=== PATIENT | male | born 1940 | race American Indian/Alaskan Native ===

== ENCOUNTER 2017-11-09 11:04 | Emergency (ER) | payer MEDICARE ==
[2017-11-09 11:09] VITALS: TEMP 97.7
[2017-11-09 13:38] LABS: RBC URINE 1 /hpf (0-3); URINE BILIRUBIN NEGATIVE (NEGATIVE); URINE BLOOD NEGATIVE (NEGATIVE); URINE COLOR Yellow (YELLOW); URINE GLUCOSE (UA) NORMAL (Normal); URINE KETONE NEGATIVE (NEGATIVE); URINE LEUKOCYTE ESTERASE NEG Leu/uL (Negative); URINE PROTEIN NEGATIVE (NEGATIVE); URINE UROBILINOGEN NORMAL mg/dL (0.2-1.0); WBC URINE 1 /hpf (0-5)
[2017-11-09 14:22] VITALS: BP 145/86; PULSE 102; RESP 20; O2SAT 96
--- NOTE | 2017-11-09 18:46 | C.PDOC ---
History Of Present Illness 77 y/o male presents to the ED for evaluation dysuria and urinary frequency which began 2 weeks ago. Patient denies fever, chills, chest pain, nausea, vomiting, penile discharge. Chief Complaint (Nursing): Male Genitourinary History Per: Patient History/Exam Limitations: no limitations Onset/Duration Of Symptoms: Days Current Symptoms Are (Timing): Still Present Associated Symptoms: Urinary Symptoms. denies: Fever, Chills, Nausea, Vomiting , Chest Pain Additional History Per: Patient Past Medical History Reviewed: Historical Data, Nursing Documentation, Vital Signs Vital Signs: Last Vital Signs Temp 97.7 F 11/09/17 11:08 Pulse 102 H 11/09/17 14:21 Resp 20 11/09/17 14:21 BP 145/86 11/09/17 14:21 Pulse Ox 96 11/09/17 18:45 - Medical History PMH: HTN Surgical History: No Surg Hx Family History: States: Unknown Family Hx - Social History Hx Alcohol Use: No Hx Substance Use: No - Immunization History Hx Tetanus Toxoid Vaccination: No Hx Influenza Vaccination: Yes Hx Pneumococcal Vaccination: No Review Of Systems Constitutional: Negative for: Fever, Chills Cardiovascular: Negative for: Chest Pain Gastrointestinal: Negative for: Nausea, Vomiting Genitourinary: Positive for: Dysuria, Frequency Physical Exam - Physical Exam Appears: Non-toxic, No Acute Distress Skin: Normal Color, Warm, Dry Oral Mucosa: Moist Neck: Supple Chest: Symmetrical, No Deformity Cardiovascular: Rhythm Regular Respiratory: Normal Breath Sounds Gastrointestinal/Abdominal: Soft, No Tenderness, No Guarding, No Rebound Neurological/Psych: Oriented x3, Normal Speech, Normal Cognition Gait: Steady ED Course And Treatment O2 Sat by Pulse Oximetry: 96 (on RA) Pulse Ox Interpretation: Normal Medical Decision Making Medical Decision Making: urine culture obtained. UA ordered and reviewed. Disposition - Disposition Referrals: Janel Juarez MD [Staff Provider] - Disposition: HOME/ ROUTINE Disposition Time: 13:00 Condition: GOOD Additional Instructions: Thank you for letting us take care of you today. The emergency medical care you received today was directed at your acute symptoms. If you were prescribed any medication, please fill it and take as directed. It may take several days for your symptoms to resolve. Return to the Emergency Department if your symptoms worsen, do not improve, or if you have any other problems. Please contact your doctor or call one of the physicians/clinics you have been referred to that are listed on the Patient Visit Information form that is included in your discharge packet. Bring any paperwork you were given at discharge with you along with any medications you are taking to your follow up visit. Our treatment cannot replace ongoing medical care by a primary care provider (PCP) outside of the emergency department. Thank you for allowing the [facility] team to be part of your care today. Follow up with your doctor in 3-4 days for re-evaluation and further management. Forms: [employer] (Gambian) - Clinical Impression Clinical Impression: Normal exam - Scribe Statement The provider has reviewed the documentation as recorded by the Scribe (SP) Provider Attestation: All medical record entries made by the Scribe were at my direction and personally dictated by me. I have reviewed the chart and agree that the record accurately reflects my personal performance of the history, physical exam, medical decision making, and the department course for this patient. I have also personally directed, reviewed, and agree with the discharge instructions and disposition.
== END 2017-11-09 14:22 | disposition home or self-care (01) ==
LOC: C.ER 11:04
DX: Z04.8 Encounter for examination and observation for other specified reasons (principal)

== ENCOUNTER 2018-05-15 13:42 | Inpatient (IN) | payer MEDICARE ==
[2018-05-15 13:53] VITALS: BMI 43.5
--- NOTE | 2018-05-15 14:16 | C.PDOC ---
History Of Present Illness 78 year old male presents to ED for near syncope prior to arrival, onset while standing. +fall, +left facial injury. Denies LOC. Denies associated chest pain, palpitations, headache, abdominal pain, nausea, vomiting. Pt is currently asymptomatic. Denies history of CAD. Pt states "I used to have slight HIV but I got rid of it". Pt is noncompliant with HAART for the past year. Denies drug or smoking use. 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 ONSET WHILE STANDING, +FALL +L FACIAL INJURY. NO LOC. DENIES ASSOC CP, PALP, CAMPBELL, ABD PAIN, NV. CURRENTLY ASYMPT. DENIES HO CAD. PS "I USED TO HAVE SLIGHT HIV BUT I GOT RID OF IT". NONCOMPLIANT W HAART X 1 YR. DENIES DRUG, SMOKING USE EXAM NAD NONTOXIC HEENT +ABRASION L FACE NO SWELL, DEFORM; EOMI; NOSE CLEAR NECK SUPPLE LUNGS CTA B/L NO W/R/R NEURO NO FOCAL DEF NO EDEMA REMAINDER NEG Time Seen by Provider: 05/15/18 13:49 History Per: Patient History/Exam Limitations: no limitations Onset/Duration Of Symptoms: Days Current Symptoms Are (Timing): Still Present Additional History Per: Patient Past Medical History Reviewed: Historical Data, Nursing Documentation, Vital Signs Vital Signs: Last Vital Signs Temp 98.3 F 05/15/18 13:52 Pulse 77 05/15/18 15:27 Resp 16 05/15/18 15:27 BP 110/86 05/15/18 15:27 Pulse Ox 96 05/15/18 14:32 - Medical History PMH: HTN Family History: States: Unknown Family Hx - Social History Hx Alcohol Use: No Hx Substance Use: No - Immunization History Hx Tetanus Toxoid Vaccination: No Hx Influenza Vaccination: No Hx Pneumococcal Vaccination: No Review Of Systems Except As Marked, All Systems Reviewed And Found Negative. Constitutional: Negative for: Fever, Chills Cardiovascular: Negative for: Chest Pain, Palpitations Respiratory: Negative for: Cough, Shortness of Breath Gastrointestinal: Negative for: Nausea, Vomiting, Abdominal Pain Skin: Positive for: Other (left facial injury) Neurological: Positive for: Other (Near syncope). Negative for: Headache Physical Exam - Physical Exam Appears: Non-toxic, No Acute Distress Skin: Warm, Dry, Other (abrasion to left side of face, no swelling or deformity) Head: Atraumatic, Normacephalic Eye(s): bilateral: Normal Inspection, EOMI Nose: Normal Oral Mucosa: Moist Throat: Normal, No Erythema, No Exudate Neck: Normal ROM, Supple Cardiovascular: Rhythm Regular, No Murmur Respiratory: Normal Breath Sounds, No Rales, No Rhonchi, No Wheezing Gastrointestinal/Abdominal: Soft, No Tenderness Extremity: Normal ROM, No Pedal Edema Neurological/Psych: Oriented x3, Normal Speech, Other (no focal deficits) ED Course And Treatment - Laboratory Results Result Diagrams: 05/15/18 14:22 05/15/18 14:22 ECG: Interpreted By Me ECG Rhythm: Sinus Rhythm ECG Interpretation: Normal Rate From EC O2 Sat by Pulse Oximetry: 96 (RA) Pulse Ox Interpretation: Normal Progress - Re-Evaluation Re-evaluation Note: 05/15/18 16:43 EXAM UNCH PRIOR VSS D/W DR THOMSON 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 WILL 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 - Data Reviewed Data Reviewed: Lab, Diagnostic imaging, EKG, Old records Medical Decision Making Medical Decision Making: Plan: Blood work Urinalysis EKG CXR Disposition Counseled Patient/Family Regarding: Studies Performed, Diagnosis - Disposition Disposition: HOSPITALIZED Disposition Time: 16:44 Condition: STABLE - POA Present On Arrival: Falls Or Trauma - Clinical Impression Clinical Impression: Near syncope, Facial contusion - Scribe Statement The provider has reviewed the documentation as recorded by the Scribkathe Carlton All medical record entries made by the Scribe were at my direction and personally dictated by me. I have reviewed the chart and agree that the record accurately reflects my personal performance of the history, physical exam, medical decision making, and the department course for this patient. I have also personally directed, reviewed, and agree with the discharge instructions and disposition. Decision To Admit - Pt Status Changed To: Hospital Disposition Of: Observation - . Bed Request Type: Telemetry Admitting Physician: Alia Thomson Patient Diagnosis: Near syncope, Facial contusion
[2018-05-15 14:26] LABS: BASO # 0.1 K/uL (0.0-0.2); BASO % 1.2 % (0.0-2.0); EOS # 0.1 K/uL (0.0-0.7); HEMOGLOBIN 14.6 g/dL (12.0-18.0); LYMPH # 2.2 K/uL (1.0-4.3); LYMPH % 39.6 % (20.0-40.0); MEAN CELL VOLUME 82.1 fL (80.0-94.0); MEAN CORPUSCULAR HEMOGLOBIN 27.6 pg (27.0-31.0); MEAN CORPUSCULAR HGB CONC 33.7 g/dL (33.0-37.0); MEAN PLATELET VOLUME 9.1 fL (7.2-11.7); MONO # 0.7 K/uL (0.0-0.8); MONO % 12.3 % (0.0-10.0); NEUT # 2.5 K/uL (1.8-7.0); NEUT % 44.9 % (50.0-75.0); NRBC % 0.1 % (0.0-2.0); RBC 5.27 Mil/uL (4.40-5.90); RED CELL DISTRIBUTION WIDTH 15.3 % (11.5-14.5); WHITE BLOOD COUNT 5.5 K/uL (4.8-10.8)
[2018-05-15 14:38] LABS: ALB/GLOB RATIO 0.9 (1.0-2.1); ALBUMIN 3.9 g/dL (3.5-5.0); ALT/SGPT 26 U/L (21-72); AST/SGOT 19 U/L (17-59); BLOOD UREA NITROGEN 12 mg/dL (9-20); CALCIUM 9.2 mg/dl (8.6-10.4); GFR AFRICAN-AMERICAN > 60; GFR NON-AFRICAN AMERICAN > 60
[2018-05-15 14:49] LABS: B-TYPE NATRIURETIC PEPTIDE 170 pg/mL (0-900)
[2018-05-15] MEDS ORDERED: Iodixanol 320 mg/ml 150 ml Bottle IV ONE (15:03)
[2018-05-15 15:18] LABS: SQUAMOUS EPITHIAL < 1 /hpf (0-5); URINE BACTERIA RARE (<OCC); URINE BILIRUBIN NEGATIVE (NEGATIVE); URINE BLOOD NEGATIVE (NEGATIVE); URINE CLARITY Clear (Clear); URINE COLOR Yellow (YELLOW); URINE GLUCOSE (UA) NORMAL (Normal); URINE HYALINE CAST 0-2 /lpf (0-2); URINE LEUKOCYTE ESTERASE NEG Leu/uL (Negative); URINE PROTEIN NEGATIVE (NEGATIVE); URINE UROBILINOGEN NORMAL mg/dL (0.2-1.0)
[2018-05-15 15:34] LABS: BARBITURATES, UR NEGATIVE (NEGATIVE); BENZODIAZEPINES, UR NEGATIVE (NEGATIVE); OPIATES, UR NEGATIVE (NEGATIVE); PHENCYCLIDINE, UR NEGATIVE (NEGATIVE)
--- NOTE | 2018-05-15 15:41 | CT ---
PROCEDURE: CT HEAD WITHOUT CONTRAST. HISTORY: syncope ho HIV COMPARISON: None available. TECHNIQUE: Axial computed tomography images were obtained through the head/brain without intravenous contrast. Radiation dose: Total exam DLP = 1172.21 mGy-cm. This CT exam was performed using one or more of the following dose reduction techniques: Automated exposure control, adjustment of the mA and/or kV according to patient size, and/or use of iterative reconstruction technique. FINDINGS: HEMORRHAGE: No intracranial hemorrhage. BRAIN: No mass effect or edema. Moderate to severe chronic periventricular white matter lucency with confluent deep white matter lucency, consistent chronic microvascular ischemic change. No evidence of acute infarct. 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 Small old bilateral basal ganglia lacunar infarcts. VENTRICLES: Unremarkable. No hydrocephalus. CALVARIUM: Unremarkable. PARANASAL SINUSES: Chronic ethmoid sinusitis. MASTOID AIR CELLS: Unremarkable as visualized. No inflammatory changes. OTHER FINDINGS: None. IMPRESSION: No intracranial mass, hemorrhage or evidence of acute infarct. Severe chronic white matter ischemic change. 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
--- NOTE | 2018-05-15 15:51 | CT ---
PROCEDURE: CT Chest with contrast (Pulmonary Angiogram) HISTORY: syncope ho HIV r/o PE COMPARISON: None available. TECHNIQUE: Axial computed tomography images were obtained of the chest in the pulmonary arterial phase of enhancement. Coronal and sagittal reformatted images were created and reviewed. Intravenous contrast dose: 100 mL Visipaque 320 Radiation dose: Total exam DLP = 503.39 mGy-cm. This CT exam was performed using one or more of the following dose reduction techniques: Automated exposure control, adjustment of the mA and/or kV according to patient size, and/or use of iterative reconstruction technique. FINDINGS: PULMONARY ARTERIES: Unremarkable. No pulmonary embolism. AORTA: No acute findings. No thoracic aortic aneurysm. LUNGS: Centrilobular pulmonary emphysema most prominent in lung apices. Mild subpleural emphysema. No infiltrate. Subsegmental atelectasis in the lingular segment of the left upper lobe. No pulmonary mass. Calcified granuloma in the right lower lobe. PLEURAL SPACES: Unremarkable. No effusion or pneuomothorax. HEART: Unremarkable. No cardiomegaly. No significant pericardial effusion. LYMPH NODES: No lymphadenopathy. BONES, CHEST WALL: Unremarkable. No fracture or destructive lesion OTHER FINDINGS: Multiple small nonspecific low-attenuation hepatic lesions, largest 1.8 cm. Nonspecific. Cholelithiasis without mural thickening or pericholecystic fluid. IMPRESSION: No evidence of pulmonary embolism. No acute infiltrate. Centrilobular and subpleural pulmonary emphysema. Additional minor findings as above.
--- NOTE | 2018-05-15 16:08 | RAD ---
HISTORY: SYNCOPE COMPARISON: No prior. TECHNIQUE: Chest PA and lateral FINDINGS: LUNGS: No focal consolidation. Interstitial prominence in the upper lobes, right greater than left. PLEURA: No significant pleural effusion identified. No pneumothorax apparent. CARDIOVASCULAR: Normal. OSSEOUS STRUCTURES: No significant abnormalities. VISUALIZED UPPER ABDOMEN: Normal. OTHER FINDINGS: None. IMPRESSION: No active disease. No acute infiltrate. Interstitial prominence bilaterally in the upper lobes.
[2018-05-15 23:00] LABS: CK-MB 0.91 ng/mL (0.0-3.38)
[2018-05-16 06:39] LABS: CK-MB 0.74 ng/mL (0.0-3.38); TROPONIN I 0.017 ng/mL (0.00-0.120)
[2018-05-16 09:46] LABS: HEMOGLOBIN 15.4 g/dL (12.0-18.0); MEAN CELL VOLUME 82.6 fL (80.0-94.0); MEAN CORPUSCULAR HEMOGLOBIN 27.3 pg (27.0-31.0); MEAN PLATELET VOLUME 9.2 fL (7.2-11.7); RBC 5.66 Mil/uL (4.40-5.90); RED CELL DISTRIBUTION WIDTH 15.7 % (11.5-14.5); WHITE BLOOD COUNT 6.7 K/uL (4.8-10.8)
[2018-05-16 10:28] LABS: ALB/GLOB RATIO 0.9 (1.0-2.1); ALBUMIN 4.2 g/dL (3.5-5.0); ALT/SGPT 25 U/L (21-72); AST/SGOT 25 U/L (17-59); BLOOD UREA NITROGEN 13 mg/dL (9-20); CALCIUM 9.9 mg/dl (8.6-10.4); GFR AFRICAN-AMERICAN > 60; GFR NON-AFRICAN AMERICAN > 60
[2018-05-16] MEDS: Metoprolol Succinate 25 mg XL Tab PO SCH (10:41)
--- NOTE | 2018-05-16 12:16 | CP.PCM.CON ---
History of Present Illness - History of Present Illness History of Present Illness: INFECTIOUS DISEASE CONSULT; HPI; 78 year old male presents to ED for near syncope prior to arrival, onset while standing. +fall, +left facial injury. Denies LOC. Denies associated chest pain, palpitations, headache, abdominal pain, nausea, vomiting. Pt is currently asymptomatic. Denies history of CAD. Pt states "I used to have slight HIV but I got rid of it". Pt is noncompliant with HAART for the past year. Denies drug or smoking use. INFECTIOUS DISEASE CONSULTATION REQUESTED BY DR. THOMSON FOR RULE OUT HIV, PATIENT IN DENIAL FOR HIS HIV DISEASE. PATIENT DENIES HOMOSEXUAL ACTIVITY or IV drug abuse. Denies history of blood transfusion. Does not remember his HIV medications. Patient is forgetful and at times confused. PMH: HTN Family History: States: Unknown Family Hx - Social History Hx Alcohol Use: No Hx Substance Use: No - Immunization History Hx Tetanus Toxoid Vaccination: No Hx Influenza Vaccination: No Hx Pneumococcal Vaccination: No Review of Systems - Constitutional Constitutional: As Per HPI. absent: Chills, Fever, Headache - EENT Eyes: absent: Change in Vision, Floaters (WEARS CORRECTIVE EYEGLASSES) Nose/Mouth/Throat: absent: Mouth Lesions, Odynophagia - Cardiovascular Cardiovascular: Rapid Heart Rate. absent: Chest Pain - Respiratory Respiratory: absent: Cough - Gastrointestinal Gastrointestinal: absent: Constipation, Diarrhea, Nausea, Vomiting - Genitourinary Genitourinary: absent: Dysuria, Urinary Hesitance, Freq UTI - Musculoskeletal Musculoskeletal: As Per HPI - Neurological Neurological: Dizziness, Syncope (NEAR SYNCOPY. NO LOC.). absent: Focal Weakness, Headaches - Psychiatric Psychiatric: Confusion - Hematologic/Lymphatic Hematologic: As Per HPI. absent: Easy Bleeding, Lymphadenopathy Past Patient History - Past Medical History & Family History Past Medical History?: Yes - Past Social History Smoking Status: Never Smoked - CARDIAC Hx Cardiac Disorders: Yes Hx Hypertension: Yes - PULMONARY Hx Respiratory Disorders: No - NEUROLOGICAL Hx Neurological Disorder: No - HEENT Hx HEENT Problems: No - RENAL Hx Chronic Kidney Disease: No - ENDOCRINE/METABOLIC Hx Endocrine Disorders: No - HEMATOLOGICAL/ONCOLOGICAL Hx Blood Disorders: Yes Hx Human Immunodeficiency Virus (HIV): Yes - INTEGUMENTARY Hx Dermatological Problems: No - MUSCULOSKELETAL/RHEUMATOLOGICAL Hx Musculoskeletal Disorders: No Hx Falls: No - GASTROINTESTINAL Hx Gastrointestinal Disorders: No - GENITOURINARY/GYNECOLOGICAL Hx Genitourinary Disorders: No - PSYCHIATRIC Hx Psychophysiologic Disorder: No Hx Substance Use: No - SURGICAL HISTORY Hx Surgeries: No - ANESTHESIA Hx Anesthesia: No Meds Allergies/Adverse Reactions: Allergies Allergy/AdvReac Type Severity Reaction Status Date / Time No Known Allergies Allergy Verified 05/15/18 13:51 - Medications Medications: Current Medications Acetaminophen (Tylenol 325mg Tab) 650 mg PO Q4H PRN PRN Reason: pain fever Aspirin (Aspirin Chewable) 81 mg PO DAILY [facility] Last Admin: 05/16/18 10:41 Dose: 81 mg Famotidine (Pepcid) 40 mg PO DAILY [facility] Last Admin: 05/16/18 10:41 Dose: 40 mg Metoprolol Succinate (Toprol Xl) 25 mg PO DAILY [facility] Last Admin: 05/16/18 10:41 Dose: 25 mg Physical Exam - Constitutional Appears: No Acute Distress - Head Exam Head Exam: NORMAL INSPECTION - Eye Exam Eye Exam: EOMI, PERRL - ENT Exam ENT Exam: Normal Oropharynx (NO THRUSH) - Neck Exam Neck exam: Positive for: Normal Inspection. Negative for: Meningismus - Respiratory Exam Respiratory Exam: Clear to Auscultation Bilateral - Cardiovascular Exam Cardiovascular Exam: Tachycardia, REGULAR RHYTHM, +S1, +S2 - GI/Abdominal Exam GI & Abdominal Exam: Normal Bowel Sounds, Soft. absent: Tenderness - Extremities Exam Extremities exam: Positive for: pedal pulses present. Negative for: calf tenderness, pedal edema - Neurological Exam Neurological exam: Alert, CN II-XII Intact, Normal Gait, Reflexes Normal - Psychiatric Exam Psychiatric exam: Normal Mood - Skin Skin Exam: Dry, Normal Color, Warm Results - Vital Signs Recent Vital Signs: Last Vital Signs Temp 98.3 F 05/16/18 07:00 Pulse 74 05/16/18 10:50 Resp 20 05/16/18 07:00 BP 137/89 05/16/18 07:00 Pulse Ox 96 05/16/18 07:00 - Labs Result Diagrams: 05/16/18 09:29 05/16/18 09:29 Labs: Laboratory Results - last 24 hr 05/15/18 05/15/18 05/15/18 14:07 14:22 14:22 WBC 5.5 RBC 5.27 Hgb 14.6 Hct 43.3 MCV 82.1 D MCH 27.6 MCHC 33.7 RDW 15.3 H Plt Count 137 MPV 9.1 Neut % (Auto) 44.9 L Lymph % (Auto) 39.6 [place] % (Auto) 12.3 H Eos % (Auto) 2.0 Baso % (Auto) 1.2 Neut # (Auto) 2.5 Lymph # (Auto) 2.2 [place] # (Auto) 0.7 Eos # (Auto) 0.1 Baso # (Auto) 0.1 D-Dimer, Quantitative 1000 H Sodium Potassium Chloride Carbon Dioxide Anion Gap BUN Creatinine Est GFR ( Amer) Est GFR (Non-Af Amer) POC Glucose (mg/dL) 168 H Random Glucose Calcium Total Bilirubin AST ALT Alkaline Phosphatase Total Creatine Kinase CK-MB (Mass) Troponin I NT-Pro-B Natriuret Pep Total Protein Albumin Globulin Albumin/Globulin Ratio Urine Color Urine Clarity Urine pH Ur Specific [place] Urine Protein Urine Glucose (UA) Urine Ketones Urine Blood Urine Nitrate Urine Bilirubin Urine Urobilinogen Ur Leukocyte Esterase Urine WBC (Auto) Urine RBC (Auto) Ur Squamous Epith Cells Urine Bacteria Hyaline Casts Urine Opiates Screen Urine Methadone Screen Ur Barbiturates Screen Ur Phencyclidine Scrn Ur Amphetamines Screen U Benzodiazepines Scrn U Oth Cocaine Metabols U Cannabinoids Screen Alcohol, Quantitative HIV 1&2 Antibody Screen 05/15/18 05/15/18 05/15/18 14:22 15:07 15:07 WBC RBC Hgb Hct MCV MCH MCHC RDW Plt Count MPV Neut % (Auto) Lymph % (Auto) [place] % (Auto) Eos % (Auto) Baso % (Auto) Neut # (Auto) Lymph # (Auto) [place] # (Auto) Eos # (Auto) Baso # (Auto) D-Dimer, Quantitative Sodium 139 Potassium 4.3 Chloride 106 Carbon Dioxide 26 Anion Gap 12 BUN 12 Creatinine 1.0 Est GFR ( Amer) > 60 Est GFR (Non-Af Amer) > 60 POC Glucose (mg/dL) Random Glucose 173 H Calcium 9.2 Total Bilirubin 0.7 AST 19 ALT 26 Alkaline Phosphatase 76 Total Creatine Kinase CK-MB (Mass) Troponin I < 0.0120 NT-Pro-B Natriuret Pep 170 Total Protein 8.1 Albumin 3.9 Globulin 4.2 H Albumin/Globulin Ratio 0.9 L Urine Color Yellow Urine Clarity Clear Urine pH 7.0 Ur Specific [place] 1.015 Urine Protein Negative Urine Glucose (UA) Normal Urine Ketones Negative Urine Blood Negative Urine Nitrate Negative Urine Bilirubin Negative Urine Urobilinogen Normal Ur Leukocyte Esterase Neg Urine WBC (Auto) < 1 Urine RBC (Auto) < 1 Ur Squamous Epith Cells < 1 Urine Bacteria Rare Hyaline Casts 0-2 Urine Opiates Screen Negative Urine Methadone Screen Negative Ur Barbiturates Screen Negative Ur Phencyclidine Scrn Negative Ur Amphetamines Screen Negative U Benzodiazepines Scrn Negative U Oth Cocaine Metabols Negative U Cannabinoids Screen Negative Alcohol, Quantitative < 10 HIV 1&2 Antibody Screen 05/15/18 05/16/18 05/16/18 22:32 06:11 09:29 WBC RBC Hgb Hct MCV MCH MCHC RDW Plt Count MPV Neut % (Auto) Lymph % (Auto) [place] % (Auto) Eos % (Auto) Baso % (Auto) Neut # (Auto) Lymph # (Auto) [place] # (Auto) Eos # (Auto) Baso # (Auto) D-Dimer, Quantitative Sodium Potassium Chloride Carbon Dioxide Anion Gap BUN Creatinine Est GFR ( Amer) Est GFR (Non-Af Amer) POC Glucose (mg/dL) Random Glucose Calcium Total Bilirubin AST ALT Alkaline Phosphatase Total Creatine Kinase 102 114 CK-MB (Mass) 0.91 0.74 Troponin I < 0.0120 0.0170 NT-Pro-B Natriuret Pep Total Protein Albumin Globulin Albumin/Globulin Ratio Urine Color Urine Clarity Urine pH Ur Specific [place] Urine Protein Urine Glucose (UA) Urine Ketones Urine Blood Urine Nitrate Urine Bilirubin Urine Urobilinogen Ur Leukocyte Esterase Urine WBC (Auto) Urine RBC (Auto) Ur Squamous Epith Cells Urine Bacteria Hyaline Casts Urine Opiates Screen Urine Methadone Screen Ur Barbiturates Screen Ur Phencyclidine Scrn Ur Amphetamines Screen U Benzodiazepines Scrn U Oth Cocaine Metabols U Cannabinoids Screen Alcohol, Quantitative HIV 1&2 Antibody Screen Reactive 05/16/18 05/16/18 09:29 09:29 WBC 6.7 RBC 5.66 Hgb 15.4 Hct 46.8 MCV 82.6 MCH 27.3 MCHC 33.0 RDW 15.7 H Plt Count 148 MPV 9.2 Neut % (Auto) Lymph % (Auto) [place] % (Auto) Eos % (Auto) Baso % (Auto) Neut # (Auto) Lymph # (Auto) [place] # (Auto) Eos # (Auto) Baso # (Auto) D-Dimer, Quantitative Sodium 142 Potassium 4.1 Chloride 105 Carbon Dioxide 27 Anion Gap 14 BUN 13 Creatinine 0.8 Est GFR ( Amer) > 60 Est GFR (Non-Af Amer) > 60 POC Glucose (mg/dL) Random Glucose 147 H Calcium 9.9 Total Bilirubin 1.0 AST 25 ALT 25 Alkaline Phosphatase 97 Total Creatine Kinase CK-MB (Mass) Troponin I NT-Pro-B Natriuret Pep Total Protein 9.0 H Albumin 4.2 Globulin 4.9 H Albumin/Globulin Ratio 0.9 L Urine Color Urine Clarity Urine pH Ur Specific [place] Urine Protein Urine Glucose (UA) Urine Ketones Urine Blood Urine Nitrate Urine Bilirubin Urine Urobilinogen Ur Leukocyte Esterase Urine WBC (Auto) Urine RBC (Auto) Ur Squamous Epith Cells Urine Bacteria Hyaline Casts Urine Opiates Screen Urine Methadone Screen Ur Barbiturates Screen Ur Phencyclidine Scrn Ur Amphetamines Screen U Benzodiazepines Scrn U Oth Cocaine Metabols U Cannabinoids Screen Alcohol, Quantitative HIV 1&2 Antibody Screen - Imaging and Cardiology CT scan - head Status: Report reviewed by me (-VE) Assessment & Plan - Assessment and Plan (Free Text) Assessment: Asssessment : R/O HIV (HX OF HIV BUT PT. THINKS HE TOOK CARE OF IT ) NEAR SYNCOPY /FALL CARDIAC ARRHYTHMIA HTN. DYSLIPIDEMIA ?EARLY DEMENTIA. Plan : HIV W/U IN PROGRESS. HIV RNA QUANT. LEVELS-P LYMPHOCYTE SUBSET STUDY-P RPR/FTA-ABS.AM CR[place] AG-AM. PT STILL IN DENIAL OF HIS HIV DISEASE.DOES NOT REMEMBER HIS MEDS. THINKS HE TOOK CARE OF IT. SYNCOPY W/U IN PROGRESS.CARDIOLOGY ON BOARD. 2D ECHO -P CAROTID DOPPLERS -P WILL F/U WITH YOU.THANK YOU.
--- NOTE | 2018-05-16 13:12 | CP.PCM.CON ---
History of Present Illness - History of Present Illness History of Present Illness: Patient who is 78 year sold male who was at [employer] for some personal chores and almost passed out while standing. No symptoms before the episode. Past Patient History - Past Medical History & Family History Past Medical History?: Yes - Past Social History Smoking Status: Never Smoked - CARDIAC Hx Cardiac Disorders: Yes Hx Hypertension: Yes - PULMONARY Hx Respiratory Disorders: No - NEUROLOGICAL Hx Neurological Disorder: No - HEENT Hx HEENT Problems: No - RENAL Hx Chronic Kidney Disease: No - ENDOCRINE/METABOLIC Hx Endocrine Disorders: No - HEMATOLOGICAL/ONCOLOGICAL Hx Blood Disorders: Yes Hx Human Immunodeficiency Virus (HIV): Yes - INTEGUMENTARY Hx Dermatological Problems: No - MUSCULOSKELETAL/RHEUMATOLOGICAL Hx Musculoskeletal Disorders: No Hx Falls: No - GASTROINTESTINAL Hx Gastrointestinal Disorders: No - GENITOURINARY/GYNECOLOGICAL Hx Genitourinary Disorders: No - PSYCHIATRIC Hx Psychophysiologic Disorder: No Hx Substance Use: No - SURGICAL HISTORY Hx Surgeries: No - ANESTHESIA Hx Anesthesia: No Meds Allergies/Adverse Reactions: Allergies Allergy/AdvReac Type Severity Reaction Status Date / Time No Known Allergies Allergy Verified 05/15/18 13:51 - Medications Medications: Current Medications Acetaminophen (Tylenol 325mg Tab) 650 mg PO Q4H PRN PRN Reason: pain fever Aspirin (Aspirin Chewable) 81 mg PO DAILY [facility] Last Admin: 05/16/18 10:41 Dose: 81 mg Famotidine (Pepcid) 40 mg PO DAILY [facility] Last Admin: 05/16/18 10:41 Dose: 40 mg Metoprolol Succinate (Toprol Xl) 25 mg PO DAILY [facility] Last Admin: 05/16/18 10:41 Dose: 25 mg Physical Exam - Head Exam Head Exam: NORMOCEPHALIC - Neck Exam Neck exam: Positive for: Normal Inspection - Cardiovascular Exam Cardiovascular Exam: REGULAR RHYTHM, Systolic Murmur Additional comments: 12/05 systolic murmur. Results - Vital Signs Recent Vital Signs: Last Vital Signs Temp 98.3 F 05/16/18 07:00 Pulse 74 05/16/18 10:50 Resp 20 05/16/18 07:00 BP 137/89 05/16/18 07:00 Pulse Ox 96 05/16/18 07:00 - Labs Result Diagrams: 05/16/18 09:29 05/16/18 09:29 Labs: Laboratory Results - last 24 hr 05/15/18 05/15/18 05/15/18 14:07 14:22 14:22 WBC 5.5 RBC 5.27 Hgb 14.6 Hct 43.3 MCV 82.1 D MCH 27.6 MCHC 33.7 RDW 15.3 H Plt Count 137 MPV 9.1 Neut % (Auto) 44.9 L Lymph % (Auto) 39.6 [place] % (Auto) 12.3 H Eos % (Auto) 2.0 Baso % (Auto) 1.2 Neut # (Auto) 2.5 Lymph # (Auto) 2.2 [place] # (Auto) 0.7 Eos # (Auto) 0.1 Baso # (Auto) 0.1 D-Dimer, Quantitative 1000 H Sodium Potassium Chloride Carbon Dioxide Anion Gap BUN Creatinine Est GFR ( Amer) Est GFR (Non-Af Amer) POC Glucose (mg/dL) 168 H Random Glucose Calcium Total Bilirubin AST ALT Alkaline Phosphatase Total Creatine Kinase CK-MB (Mass) Troponin I NT-Pro-B Natriuret Pep Total Protein Albumin Globulin Albumin/Globulin Ratio TSH 3rd Generation Urine Color Urine Clarity Urine pH Ur Specific [place] Urine Protein Urine Glucose (UA) Urine Ketones Urine Blood Urine Nitrate Urine Bilirubin Urine Urobilinogen Ur Leukocyte Esterase Urine WBC (Auto) Urine RBC (Auto) Ur Squamous Epith Cells Urine Bacteria Hyaline Casts Urine Opiates Screen Urine Methadone Screen Ur Barbiturates Screen Ur Phencyclidine Scrn Ur Amphetamines Screen U Benzodiazepines Scrn U Oth Cocaine Metabols U Cannabinoids Screen Alcohol, Quantitative HIV 1&2 Antibody Screen 05/15/18 05/15/18 05/15/18 14:22 15:07 15:07 WBC RBC Hgb Hct MCV MCH MCHC RDW Plt Count MPV Neut % (Auto) Lymph % (Auto) [place] % (Auto) Eos % (Auto) Baso % (Auto) Neut # (Auto) Lymph # (Auto) [place] # (Auto) Eos # (Auto) Baso # (Auto) D-Dimer, Quantitative Sodium 139 Potassium 4.3 Chloride 106 Carbon Dioxide 26 Anion Gap 12 BUN 12 Creatinine 1.0 Est GFR ( Amer) > 60 Est GFR (Non-Af Amer) > 60 POC Glucose (mg/dL) Random Glucose 173 H Calcium 9.2 Total Bilirubin 0.7 AST 19 ALT 26 Alkaline Phosphatase 76 Total Creatine Kinase CK-MB (Mass) Troponin I < 0.0120 NT-Pro-B Natriuret Pep 170 Total Protein 8.1 Albumin 3.9 Globulin 4.2 H Albumin/Globulin Ratio 0.9 L TSH 3rd Generation Urine Color Yellow Urine Clarity Clear Urine pH 7.0 Ur Specific [place] 1.015 Urine Protein Negative Urine Glucose (UA) Normal Urine Ketones Negative Urine Blood Negative Urine Nitrate Negative Urine Bilirubin Negative Urine Urobilinogen Normal Ur Leukocyte Esterase Neg Urine WBC (Auto) < 1 Urine RBC (Auto) < 1 Ur Squamous Epith Cells < 1 Urine Bacteria Rare Hyaline Casts 0-2 Urine Opiates Screen Negative Urine Methadone Screen Negative Ur Barbiturates Screen Negative Ur Phencyclidine Scrn Negative Ur Amphetamines Screen Negative U Benzodiazepines Scrn Negative U Oth Cocaine Metabols Negative U Cannabinoids Screen Negative Alcohol, Quantitative < 10 HIV 1&2 Antibody Screen 05/15/18 05/16/18 05/16/18 22:32 06:11 09:29 WBC RBC Hgb Hct MCV MCH MCHC RDW Plt Count MPV Neut % (Auto) Lymph % (Auto) [place] % (Auto) Eos % (Auto) Baso % (Auto) Neut # (Auto) Lymph # (Auto) [place] # (Auto) Eos # (Auto) Baso # (Auto) D-Dimer, Quantitative Sodium Potassium Chloride Carbon Dioxide Anion Gap BUN Creatinine Est GFR ( Amer) Est GFR (Non-Af Amer) POC Glucose (mg/dL) Random Glucose Calcium Total Bilirubin AST ALT Alkaline Phosphatase Total Creatine Kinase 102 114 CK-MB (Mass) 0.91 0.74 Troponin I < 0.0120 0.0170 NT-Pro-B Natriuret Pep Total Protein Albumin Globulin Albumin/Globulin Ratio TSH 3rd Generation Urine Color Urine Clarity Urine pH Ur Specific [place] Urine Protein Urine Glucose (UA) Urine Ketones Urine Blood Urine Nitrate Urine Bilirubin Urine Urobilinogen Ur Leukocyte Esterase Urine WBC (Auto) Urine RBC (Auto) Ur Squamous Epith Cells Urine Bacteria Hyaline Casts Urine Opiates Screen Urine Methadone Screen Ur Barbiturates Screen Ur Phencyclidine Scrn Ur Amphetamines Screen U Benzodiazepines Scrn U Oth Cocaine Metabols U Cannabinoids Screen Alcohol, Quantitative HIV 1&2 Antibody Screen Reactive 05/16/18 05/16/18 09:29 09:29 WBC 6.7 RBC 5.66 Hgb 15.4 Hct 46.8 MCV 82.6 MCH 27.3 MCHC 33.0 RDW 15.7 H Plt Count 148 MPV 9.2 Neut % (Auto) Lymph % (Auto) [place] % (Auto) Eos % (Auto) Baso % (Auto) Neut # (Auto) Lymph # (Auto) [place] # (Auto) Eos # (Auto) Baso # (Auto) D-Dimer, Quantitative Sodium 142 Potassium 4.1 Chloride 105 Carbon Dioxide 27 Anion Gap 14 BUN 13 Creatinine 0.8 Est GFR ( Amer) > 60 Est GFR (Non-Af Amer) > 60 POC Glucose (mg/dL) Random Glucose 147 H Calcium 9.9 Total Bilirubin 1.0 AST 25 ALT 25 Alkaline Phosphatase 97 Total Creatine Kinase CK-MB (Mass) Troponin I NT-Pro-B Natriuret Pep Total Protein 9.0 H Albumin 4.2 Globulin 4.9 H Albumin/Globulin Ratio 0.9 L TSH 3rd Generation 0.88 Urine Color Urine Clarity Urine pH Ur Specific [place] Urine Protein Urine Glucose (UA) Urine Ketones Urine Blood Urine Nitrate Urine Bilirubin Urine Urobilinogen Ur Leukocyte Esterase Urine WBC (Auto) Urine RBC (Auto) Ur Squamous Epith Cells Urine Bacteria Hyaline Casts Urine Opiates Screen Urine Methadone Screen Ur Barbiturates Screen Ur Phencyclidine Scrn Ur Amphetamines Screen U Benzodiazepines Scrn U Oth Cocaine Metabols U Cannabinoids Screen Alcohol, Quantitative HIV 1&2 Antibody Screen - Impressions Impression: Telemetry 5 beats NSVT. Assessment & Plan (1) NSVT (nonsustained ventricular tachycardia) Assessment and Plan: Etiology? Ischemia, LV dysfunction?. Echo to assess LV function. Further management accordingly. Status: Acute (2) SVT (supraventricular tachycardia) Assessment and Plan: Continue beta blockers, will need EP study for further management. Status: Acute (3) Near syncope Assessment and Plan: Etiology ? ETOH, Vasovagal/SVT/VT? Continue telemetry monitoring. Maintain electrolyte balance.repeat D Dimer and check Mg Status: Acute
[2018-05-16 13:28] LABS: CK-MB 0.83 ng/mL (0.0-3.38)
[2018-05-16 13:47] LABS: IRON 90 ug/dL (49-181)
[2018-05-16 13:56] LABS: % IRON SATURATION 27 (20-55); TOTAL IRON BINDING CAPACITY 336 ug/dL (250-450)
[2018-05-16 16:42] LABS: RAPID PLASMA REAGIN REACTIVE (NONREACTIVE)
[2018-05-16 23:41] LABS: HDL CHOLESTEROL 25 mg/dL (30-70)
[2018-05-16 23:52] LABS: LDL CHOLESTEROL 129 mg/dL (0-129)
--- NOTE | 2018-05-17 09:01 | CON ---
DATE: 05/16/2018 CHIEF COMPLAINT: Syncope. HISTORY OF PRESENT ILLNESS: This is a 78-year-old man with past medical history of HIV, noncompliant with HAART, hypertension, dyslipidemia, who came in for nursing passed out while standing, positive fall, left facial injury. CAT scan of the head showed no acute intracranial abnormality or chronic ischemic changes. He denies any illicit drug use, smoking, or EtOH abuse. He is tachycardic. Cardiology is on board for possible syncope. He has poor hydration throughout the day. There is some tachycardia seen. His vital signs need to be evaluated for SVT and echocardiogram. No focal weakness. All extremities moves without any difficulty. PAST MEDICAL HISTORY: HIV, noncompliant with HAART, hypertension, and dyslipidemia. REVIEW OF SYSTEMS: A 14-point review of systems negative except per HPI. FAMILY HISTORY: Noncontributory. SOCIAL HISTORY: No illicit drug use, smoking or EtOH abuse. ALLERGIES: NO KNOWN DRUG ALLERGIES. MEDICATIONS: Reviewed by nurse reconciliation sheet. LABORATORY DATA: Sodium is 142, potassium 4.1, chloride 105, carbon dioxide is 27, BUN of 13, creatinine 0.8, and random glucose 157. PHYSICAL EXAMINATION: VITAL SIGNS: Temperature 98.3, pulse rate of 104, blood pressure 137/89, respiratory rate 20 and oxygen saturation is 96% on room air. GENERAL: The patient is sitting up in bed, in no acute distress. HEENT: Head is atraumatic and normocephalic. PERRLA. Extraocular muscles intact. NECK: Supple. No JVD. No adenopathy noted. LUNGS: Clear to auscultation. No adventitious sounds. HEART: S1 and S2. Normal rate and rhythm. No murmur, rubs, or gallops. ABDOMEN: Soft, nontender and nondistended. Bowel sounds are present. EXTREMITIES: No clubbing. No cyanosis. Peripheral pulses 2+ felt bilaterally. NEUROLOGIC: The patient is alert, oriented to person, place, month and year. Speech is fluent without any errors. Cranial nerves II through XII intact. Motor exam: Moves all extremities equally. No pronator drift seen. Sensory exam: Light touch, pinprick, slightly decreased up to the calves bilaterally, decreased vibration of the toes. DTRs are 2+, downgoing at the ankles. Romberg negative. ASSESSMENT AND PLAN: This is a 78-year-old man with history of human immunodeficiency virus, noncompliant with highly active antiretroviral therapy, dyslipidemia, hypertension, who came in with transient syncopal episode while standing up and had hit his face. CAT scan of the head show no intracranial abnormalities or chronic ischemic changes. At this time, he is also tachycardic. We need to evaluate for any tachyarrhythmias. Cardiology on board. Likely, his syncope is most likely vasovagal in nature. We will recommend, 1. Adequate hydration throughout the day. 2. Cardiology followup for possible underlying tachycardia and as well as an echocardiogram. 3. Orthostatic vital signs. 4. Carotid Doppler. 5. Physical Therapy and Occupational Therapy assessment, and continue with human immunodeficiency virus managed by Infectious Disease. Thank you for this consult. Eduardo Schuler MD
[2018-05-17] MEDS: Metoprolol Succinate 25 mg XL Tab PO SCH (09:27)
--- NOTE | 2018-05-17 12:36 | CP.PCM.PN ---
Subjective - Date & Time of Evaluation Date of Evaluation: 05/17/18 Time of Evaluation: 12:33 - Subjective Subjective: Appears to be confused. Planning to go to jainism and lunch. No cardiac symptoms. Objective - Vital Signs/Intake and Output Vital Signs (last 24 hours): Temp Pulse Resp BP Pulse Ox 97.6 F 101 H 20 127/91 H 95 05/17/18 08:37 05/17/18 08:37 05/17/18 08:37 05/17/18 08:37 05/17/18 08:37 Intake and Output: 05/17/18 05/17/18 06:59 18:59 Intake Total 120 Balance 120 - Medications Medications: Current Medications Acetaminophen (Tylenol 325mg Tab) 650 mg PO Q4H PRN PRN Reason: pain fever Aspirin (Aspirin Chewable) 81 mg PO DAILY [facility] Last Admin: 05/17/18 09:28 Dose: 81 mg Famotidine (Pepcid) 40 mg PO DAILY [facility] Last Admin: 05/17/18 09:28 Dose: 40 mg Metoprolol Succinate (Toprol Xl) 25 mg PO DAILY [facility] Last Admin: 05/17/18 09:27 Dose: 25 mg - Labs Labs: 05/16/18 09:29 05/16/18 09:29 - Head Exam Head Exam: NORMOCEPHALIC - Neck Exam Neck Exam: Normal Inspection - Respiratory Exam Respiratory Exam: NORMAL BREATHING PATTERN - Cardiovascular Exam Cardiovascular Exam: REGULAR RHYTHM - Extremities Exam Extremities Exam: Normal Inspection Assessment and Plan (1) NSVT (nonsustained ventricular tachycardia) Assessment & Plan: Monitor and maintain electrolyte balance. Status: Acute (2) SVT (supraventricular tachycardia) Assessment & Plan: Willneed further work-up when confusion is resolved. Status: Acute (3) Near syncope Assessment & Plan: No new episodes. Status: Acute
--- NOTE | 2018-05-17 15:02 | CARD ---
APPROVED REPORT EXAM: Two-dimensional and M-mode echocardiogram with Doppler and color Doppler. Other Information Quality : GoodRhythm : INDICATION Abnormal EKG/Arrhythmia Syncope RISK FACTORS Hypertension 2D DIMENSIONS IVSd1.3 (0.7-1.1cm)LVDd4.3 (3.9-5.9cm) LVOT Diameter2.1 (1.8-2.4cm)PWd1.3 (0.7-1.1cm) LVDs2.9 (2.5-4.0cm)FS (%) 32.5 % LVEF (%)61.2 (>50%) Aortic Valve AoV Peak Xerdvxfk787.3cm/sAoV VTI59.7cmAO Peak GR.44mmHg LVOT Peak Bhdxaxth73.7cm/sLVOT VTI14.20cmAO Mean GR.29mmHg SYLVAIN (VMAX)0.74ra8MIT (VTI)0.85cm2 Mitral Valve MV E Llkzoqep57.8cm/sE/A ratio0.0 TDI E/Lateral E'0.0E/Medial E'0.0 Tricuspid Valve TR Peak Vkgjkrba837xe/sTR Peak Gr.70dsFmVSAC57abOq LEFT VENTRICLE The left ventricle is normal size. There is borderline concentric left ventricular hypertrophy. The left ventricular function is normal. The left ventricular ejection fraction is within the normal range. There is normal LV segmental wall motion. RIGHT VENTRICLE The right ventricle is normal size. There is normal right ventricular wall thickness. The right ventricular systolic function is normal. ATRIA The left atrium is mildly dilated. The right atrium size is normal. AORTIC VALVE The aortic valve is severely sclerotic. There is trace aortic regurgitation. There is moderate to severe valvular aortic stenosis. MITRAL VALVE The mitral valve is mildly thickened. There is no mitral valve stenosis. Mitral regurgitation is trace. TRICUSPID VALVE The tricuspid valve is normal in structure. There is trace to mild tricuspid regurgitation. GREAT VESSELS The aortic root is normal in size. The IVC is dilated. <Conclusion> The left ventricle is normal size. There is borderline concentric left ventricular hypertrophy. The left ventricular function is normal. The left ventricular ejection fraction is within the normal range. There is normal LV segmental wall motion. There is moderate to severe valvular aortic stenosis.
--- NOTE | 2018-05-17 15:18 | CP.PCM.PN ---
Subjective - Date & Time of Evaluation Date of Evaluation: 05/17/18 Time of Evaluation: 15:18 - Subjective Subjective: CHIEF COMPLAINTS TODAY : afebrile, offers no new complaints forgetful, CONFUSED AT TIMES states he was on HAART-but does not remember what? stopped it a while ago. denies CAMPBELL/DIZZINESS/OR VISUAL PROBLEMS DOES NOT REMEMBER BEING TREATED FOR STDS/SYPHLIS ROS. HEENT : N. Resp : No SOB wheezing, cough Cardio : No CP, PND orthopnea GI : No abd. 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 Musculoskel : N Ext. : Pedal pulses intact, no edema or calf pain Derm : N Psych : N. PE. Pt. is alert awake in no distress. V.S As noted in the chart Head ,ear nose,throat and eyes : Normal.NO THRUSH, SMALL LACERATION LT. FOREHEAD. Neck : Supple with normal carotids. Lungs: Clear air entry. Heart : S1 & S2 normal .TACHYCARDIAC HR 101/MIN Abd : Soft non tender with normal bowel sounds. Neuro : Moves all ext. with no localized deficit. Ext : No edema with intact pulses. Neg. calf tenderness Derm : No rashes or decubitus ulcer. Radiology/Labs HIV1/2 AB REACTIVE RPR REACTIVE1:[address] HEAD -VE CT CHEST -VE PE Asssessment : HIV +VE ( NOT ON ART ) NEAR SYNCOPY /FALL +VE RPR R/O NEURO-SYPHLIS VS LATE LATENT SYPHLIS. CARDIAC ARRHYTHMIA HTN. DYSLIPIDEMIA ?EARLY DEMENTIA. Plan : HIV W/U IN PROGRESS. WILL SEND HIV GENOTYPE TO INITIATE ART. F/U FTA-ABS. CONSIDER NEURO EVAL FOR LP R/O NEUROSYPHLIS. PT STILL IN DENIAL OF HIS HIV DISEASE. WILL ASK NAPPER TENDER MS DICKERSON TO CALL HIS PHARMACY TO FIND OUT ABOUT HIS HIV -MEDS. SYNCOPY W/U IN PROGRESS. 2D ECHO -P CAROTID DOPPLERS -P WILL F/U WITH YOU. Objective - Vital Signs/Intake and Output Vital Signs (last 24 hours): Temp Pulse Resp BP Pulse Ox 97.6 F 101 H 20 127/91 H 95 05/17/18 08:37 05/17/18 08:37 05/17/18 08:37 05/17/18 08:37 05/17/18 08:37 Intake and Output: 06/18/18 06/18/18 06:59 18:59 Intake Total 120 Balance 120 - Medications Medications: Current Medications Acetaminophen (Tylenol 325mg Tab) 650 mg PO Q4H PRN PRN Reason: pain fever Aspirin (Aspirin Chewable) 81 mg PO DAILY [facility] Last Admin: 05/17/18 09:28 Dose: 81 mg Famotidine (Pepcid) 40 mg PO DAILY [facility] Last Admin: 05/17/18 09:28 Dose: 40 mg Metoprolol Succinate (Toprol Xl) 25 mg PO DAILY [facility] Last Admin: 05/17/18 09:27 Dose: 25 mg - Labs Labs: 05/16/18 09:29 05/16/18 09:29
--- NOTE | 2018-05-17 20:18 | HP ---
The patient is a 78-year-old male. CHIEF COMPLAINT: Syncope, fall. HISTORY OF PRESENT ILLNESS: Mr. Roberto Gallego is a 78-year-old male, came to the emergency room for near-syncope prior to arrival. It happened when he was standing, had fall, left facial injury as per patient. No loss of consciousness. No chest pain, palpitations, headache, abdominal pain, nausea, or vomiting. The patient was managed as an outpatient, as he was asymptomatic. According to the patient, he said he used to have HIV, but got rid of it. Noncompliant with HAART for the past year. Denies drug abuse or smoking. PAST MEDICAL HISTORY: Hypertension, history of HIV. FAMILY HISTORY: Father and mother noncontributory. HABITS: No smoking. No drugs. No ethanol. REVIEW OF SYSTEMS: The patient is seen and examined on the bedside, looking comfortable. No headache or dizziness. Has abrasions on the left face. No swelling. No nausea or vomiting. No fever. No chills. No hematuria or hematochezia. PHYSICAL EXAMINATION: VITAL SIGNS: Temperature 98.3, pulse 77, respiratory rate of 15, blood pressure 110/86. HEENT: Head: Normocephalic and atraumatic. A little bit of facial injury on the left side. Nose, patent. Mucous membranes moist. Eyes: PERRLA. Extraocular movements intact. Conjunctivae clear NECK: Supple. No carotid bruits, JVD, or thyromegaly. CHEST: Bilaterally symmetrical. HEART: S1 and S2 positive. LUNGS: Clear to auscultation. ABDOMEN: Soft. Bowel sounds present. No organomegaly. EXTREMITIES: No edema. No cyanosis. NEUROLOGICAL: The patient is awake and alert, moving all four extremities. No focal deficits. LABORATORY DATA: White blood cells 6.7, hemoglobin 15.5, hematocrit 46.8, and platelets 148. Sodium 142, potassium 4.1, BUN 13, creatinine 0.8, and glucose 147. ASSESSMENT AND PLAN: Mr. Roberto Gallego is a 78-year-old male with hyperglycemia, dyslipidemia, RPR positive, titer high 1-8, HIV reactive, waiting for viral load. Seen by biological sciences instructor, Dr. Mayra Alvarez. Nonsustained ventricular tachycardia . We ordered echo. Supraventricular tachycardia, continue beta blockers. Will need EP study for further management as per Cardiology. Near syncope, continue telemetry monitoring. We will order neurology consult, seen by Infectious Disease also. CAT scan of the head and chest done Alia Kumar MD MTDElsy
[2018-05-18] MEDS ORDERED: Gadodiamide 287 mg/ml 20 ml IV ONE (05:11)
--- NOTE | 2018-05-18 06:02 | PN ---
DATE: 05/17/2018 SUBJECTIVE: The patient is seen and examined at the bedside, doing progress notes for 05/17/2018. The patient was seen on 05/17/2018, looking comfortable. Wants to go home. Now ready for discharge. Wants to go against medical advice but education done. No fever. No chills. No headache. No dizziness. No nausea, vomiting, or diarrhea. Feeling some palpitations. Had tachycardia. Small laceration on left forehead. PHYSICAL EXAMINATION: VITAL SIGNS: Temperature 97.6, pulse 101, respiratory rate 20, blood pressure 127/91, pulse oximetry 95. HEENT: Head: Normocephalic. Small laceration on the left forehead, no thrush. Eyes: PERRLA. Extraocular muscles intact. Conjunctivae clear. Nose patent. Mucous membranes moist. NECK: Supple. No carotid bruits, JVD, or thyromegaly. LUNGS: Clear to auscultation. HEART: S1, S2 positive with tachycardia. ABDOMEN: Soft. Bowel sounds present. No organomegaly. EXTREMITIES: No edema, no cyanosis. NEUROLOGICAL: The patient is awake, alert. Follows simple commands. MEDICATIONS: Tylenol, aspirin, Pepcid, Toprol. LABORATORY DATA: White blood cells 6.7, hemoglobin 15.4, hematocrit 46.8, platelet 148. Sodium 142, potassium 4.1, BUN 30, creatinine 0.8, glucose 147. ASSESSMENT AND PLAN: Mr. Roberto Gallego , male who has hyperglycemia; tachycardia; human immunodeficiency virus positive, not on highly active antiretroviral therapy; near syncope; fall; positive VE, RPR, rule out neurosyphilis versus latent syphilis; cardiac arrhythmia; hypertension; dyslipidemia; early dementia. HIV workup in the process. We will send HIV genotype through inpatient HAART. Followup FTA antibodies. Consider neuro evaluation for LP, rule out neurosyphilis. Still denies HIV status, We will call the patient pharmacy to find out about his HIV medication status. Syncope workup in process. 2D echo ordered. Carotid Doppler of the neck ordered. Meanwhile, continue present treatment. GI and DVT prophylaxis. Repeat labs. ID is on the case. Fall precautions. Looks like patient's mental status is fluctuating. We will follow up. Alia Kumar MD [facility] # [id number] ALICIA
[2018-05-18 08:09] LABS: HEMOGLOBIN 14.2 g/dL (12.0-18.0); MEAN CELL VOLUME 82.3 fL (80.0-94.0); MEAN CORPUSCULAR HEMOGLOBIN 27.7 pg (27.0-31.0); MEAN CORPUSCULAR HGB CONC 33.7 g/dL (33.0-37.0); MEAN PLATELET VOLUME 8.9 fL (7.2-11.7); RBC 5.13 Mil/uL (4.40-5.90); RED CELL DISTRIBUTION WIDTH 15.6 % (11.5-14.5); WHITE BLOOD COUNT 6.8 K/uL (4.8-10.8)
[2018-05-18 08:27] LABS: BLOOD UREA NITROGEN 24 mg/dL (9-20); CALCIUM 9.4 mg/dl (8.6-10.4); GFR AFRICAN-AMERICAN > 60; GFR NON-AFRICAN AMERICAN > 60
--- NOTE | 2018-05-18 10:23 | VASCLAB ---
PROCEDURE: HISTORY: Syncope COMPARISON: 04/26/2008, normal. TECHNIQUE: Grayscale and duplex Doppler evaluation of the cervical carotid and vertebral arteries were performed. The common carotid, carotid bifurcations and cervical Internal Carotid Artery (ICA) and proximal External Carotid Artery (ECA) were evaluated. The vertebral arteries were evaluated for gross patency and flow direction. Report prepared by JILLIAN Wong FINDINGS: RIGHT CAROTID ARTERIES: 1. Common Carotid Artery: No significant focal plaque formation of the right common carotid artery. Maximum Peak Systolic velocity: 57 cm/sec: End-diastolic velocity 13 cm/sec. 2. Carotid Bifurcation: Homogeneous plaque formation. Maximum Peak Systolic velocity: 27 cm/sec: End-diastolic velocity 8 cm/sec. 3. Internal Carotid Artery: Plaque description: Homogeneous 3.1. Proximal Segment: Peak systolic velocity 51 cm/sec: End-diastolic velocity 18 cm/sec - % stenosis 0-15% 3.2. Middle Segment: Peak systolic velocity 68 cm/sec: End-diastolic velocity 24 cm/sec - % stenosis 0-15% 3.3. Distal Segment: Peak systolic velocity 39 cm/sec: End-diastolic velocity 16 cm/sec - % stenosis 0-15% 4. External Carotid Artery: No significant focal plaque formation. Peak systolic velocity 33 cm/sec 5. ICA/CCA Ratio: 1.2 LEFT CAROTID ARTERIES: 1. Common Carotid Artery: No significant focal plaque formation of the left common carotid artery. Maximum Peak Systolic velocity: 84 cm/sec: End-diastolic velocity 15 cm/sec. 2. Carotid Bifurcation: Homogeneous plaque formation. Maximum Peak Systolic velocity: 48 cm/sec: End-diastolic velocity 5 cm/sec. 3. Internal Carotid Artery: Plaque description: Homogeneous 3.1. Proximal Segment: Peak systolic velocity 52 cm/sec: End-diastolic velocity 27 cm/sec - % stenosis 0-15% 3.2. Middle Segment: Peak systolic velocity 81 cm/sec: End-diastolic velocity 26 cm/sec - % stenosis 0-15% 3.3. Distal Segment: Peak systolic velocity 33 cm/sec: End-diastolic velocity 8 cm/sec - % stenosis 0-15% 4. External Carotid Artery: No significant focal plaque formation. Peak systolic velocity 81 cm/sec 5. ICA/CCA Ratio: 1.4 VERTEBRAL ARTERIES: 1. Right Vertebral Artery: The right vertebral artery flow direction is antegrade. 2. Left Vertebral Artery: The left vertebral artery flow direction is antegrade. OTHER FINDINGS: 1. Right Brachial Blood pressure: 125 mmHg. 2. Left Brachial Blood pressure: 120 mmHg. IMPRESSION: RIGHT: Duplex scan does not suggest hemodynamically significant stenosis of the right extracranial carotid arteries. LEFT: Duplex scan does not suggest hemodynamically significant stenosis of the left extracranial carotid arteries.
[2018-05-18] MEDS: Metoprolol Succinate 25 mg XL Tab PO SCH (10:27)
--- NOTE | 2018-05-18 12:13 | CARD ---
APPROVED REPORT EKG Measurement Heart [id number] <Conclusion> Normal sinus rhythm Cannot rule out Anterior infarct, age undetermined Abnormal ECG
--- NOTE | 2018-05-18 14:07 | PCM.PSYCH ---
Initial Psychiatric Evaluation - Initial Psychiatric Evaluation Type of Admission: Voluntary Legal Status: Capacity Chief Complaint (in patient's own words): I'm feeling okay History of Present Illness and Precipitating Events: This is a 78 year old AAM, who presented to ED for near syncope prior to arrival , onset while standing. +fall, +left facial injury. Patient has history of alcohol abuse. As per the staff, yesterday patient remained very irritable and he wanted to leave AMA. He was agitated and was refusing the treatment as well. Today patient was consulted. Today patient remained calm and cooperative. Patient reports of a long history of drinking. Currently he is drinking almost half pint daily. He denies any past history of any inpatient psychiatric hospitalization or any history of follow-up with any psychiatrist. He appears a bit confused but he is alert awake and oriented x 2. His last drink was day before yesterday. Patient reports of some anxiety but he denies any depressed mood or any feelings of hopelessness or helplessness. Denies any withdrawal symptoms from drinking. He denies any panic attack and denies any suicidal ideation or homicidal ideation. He denies any auditory or visual hallucinations or any persecutory delusions. Current Medications: Active Medications Generic Name Dose Route Start Last Admin Trade Name Freq PRN Reason Stop Dose Admin Acetaminophen 650 mg 05/15/18 23:28 Tylenol 325mg Tab PO Q4H PRN pain fever Aspirin 81 mg 05/16/18 10:00 05/18/18 10:27 Aspirin Chewable PO 81 mg DAILY [facility] Administration Enoxaparin Sodium 40 mg 05/18/18 22:00 Lovenox SC HS [facility] Famotidine 40 mg 05/16/18 10:00 05/18/18 10:27 Pepcid PO 40 mg DAILY [facility] Administration Metoprolol Succinate 25 mg 05/16/18 10:00 05/18/18 10:27 Toprol Xl PO 25 mg DAILY [facility] Administration Past Psychiatric History - Past Psychiatric History Previous Treatment History: None Pertinent Medical Hx (Current Medical&Sleep Prob, Allergies): Allergies Allergy/AdvReac Type Severity Reaction Status Date / Time No Known Allergies Allergy Verified 05/15/18 13:51 Antihypertensive 05/15/18 Review of Systems - Review of Systems All systems: reviewed and no additional remarkable complaints except - Psychiatric Psychiatric: Anxiety, Irritability. absent: Suicidal Ideation Mental Status Examination - Personal Presentation Personal Presentation: Looks stated age - Affect Affect: Constricted - Motor Activity Motor Activity: Calm - Reliability in Providing Information Reliability in Providing Information: Poor, due to alteration in thoughts - Speech Speech: Organized - Mood Mood: Anxious - Formal Thought Process Formal Thought Process: Loosening of associations - Obsessions/Compulsions Obsessions: No Compulsions: No - Cognitive Functions Orientation: Person, Place, Situation, Time Sensorium: Alert Attention/Concentration: Attentive Abstract Thinking: [place] Estimate of Intelligence: Below average Judgement: Imparied, as evidence by: Poor judgement, Imparied, as evidence by: Lack of insight into illness - Risk Risk: Diminished functioning - Limitations Limitations: Living alone DSM 5 DX - DSM 5 DSM 5 Diagnosis: Alcohol use disorder moderate Rule out delirium - Recommended/Plan of Treatment Treatment Recommendations and Plan of Treatment: Rule out delirium Alcohol use disorder moderate Supportive therapy Psychoeducation Monitor vitals Continue 1:1 Haldol 2 mg every 6 hours when necessary Hydroxyzine 25 mg by mouth every 6 hours when necessary - Smoking Cessation Smoking Cessation Initiated: No
--- NOTE | 2018-05-18 15:00 | CP.PCM.PN ---
Subjective - Date & Time of Evaluation Date of Evaluation: 05/18/18 Time of Evaluation: 15:00 - Subjective Subjective: CHIEF COMPLAINTS TODAY : afebrile, MORE CALM TODAY AND ANSWERING QUESTIONS offers no new complaints. "BELIEVES IN THE LORD TO SAVE HIM FROM ALL TROUBLES." ON 1:1 WATCH . DOES NOT GIVE ANY MORE DETAILS OF HIS HISTORY. ROS. HEENT : N. Resp : No SOB wheezing, cough Cardio : No CP, PND orthopnea GI : No abd. Pain, n/v INFORMATICIST : No headache , focal deficit. Musculoskel : N Ext. : Pedal pulses intact, no edema or calf pain Derm : N Psych : N. PE. Pt. is alert awake in no distress. V.S As noted in the chart Head ,ear nose,throat and eyes : Normal.NO THRUSH, SMALL LACERATION LT. FOREHEAD. Neck : Supple with normal carotids. Lungs: Clear air entry. Heart : S1 & S2 normal .TACHYCARDIAC HR 101/MIN Abd : Soft non tender with normal bowel sounds. Neuro : Moves all ext. with no localized deficit. Ext : No edema with intact pulses. Neg. calf tenderness Derm : No rashes or decubitus ulcer. Radiology/Labs HIV1/2 AB REACTIVE RPR REACTIVE1:[address] HEAD -VE CT CHEST -VE PE CAROTID DOPPLERS - NORMAL Asssessment : HIV +VE ( NOT ON ART ) NEAR SYNCOPY /FALL +VE RPR R/O NEURO-SYPHLIS VS LATE LATENT SYPHLIS. CARDIAC ARRHYTHMIA HTN. DYSLIPIDEMIA ?EARLY DEMENTIA. Plan : PT FOR MRI BRAIN WITH CONTRAST R/O GUMMA/VS MASS LESION. HIV W/U IN PROGRESS. HIV GENOTYPE -P F/U HIV VL/ T-HELPER CELLS. F/U FTA-ABS. PT WILL NEED LP R/O NEUROSYPHLIS IF MRI -VE. WILL DISCUSS WITH NEUROLOGY. PT STILL IN DENIAL OF HIS HIV DISEASE. SYNCOPY W/U IN PROGRESS. 2D ECHO -P Objective - Vital Signs/Intake and Output Vital Signs (last 24 hours): Temp Pulse Resp BP Pulse Ox 98.6 F 84 20 134/73 95 05/18/18 08:00 05/18/18 08:00 05/18/18 08:00 05/18/18 08:00 05/18/18 08:00 Intake and Output: 05/18/18 05/18/18 06:59 18:59 Intake Total 120 Balance 120 - Medications Medications: Current Medications Acetaminophen (Tylenol 325mg Tab) 650 mg PO Q4H PRN PRN Reason: pain fever Aspirin (Aspirin Chewable) 81 mg PO DAILY [facility] Last Admin: 05/18/18 10:27 Dose: 81 mg Enoxaparin Sodium (Lovenox) 40 mg SC HS [facility] Famotidine (Pepcid) 40 mg PO DAILY [facility] Last Admin: 05/18/18 10:27 Dose: 40 mg Folic Acid (Folic Acid) 1 mg PO DAILY [facility] Haloperidol (Haldol) 1 mg PO Q6 PRN PRN Reason: Agitation Hydroxyzine HCl (Atarax) 25 mg PO Q6 PRN PRN Reason: Anxiety Lorazepam (Ativan) 0.5 mg PO Q6 PRN PRN Reason: Symptoms of alcohol withdrawl Metoprolol Succinate (Toprol Xl) 25 mg PO DAILY [facility] Last Admin: 05/18/18 10:27 Dose: 25 mg Multivitamins (Hexavitamin) 1 tab PO DAILY [facility] Thiamine HCl (Vitamin B1 Tab) 100 mg PO DAILY [facility] - Labs Labs: 05/18/18 07:52 05/18/18 07:52
[2018-05-18 16:22] LABS: % CD4 (T HELPER CELL) 33 Percent (30-61); % CD8 (SUPPRESSOR T CELL) 39 Percent (12-42); ABSOLUTE CD4 CELLS 921 Cells/mcL (490-1740); ABSOLUTE CD8 CELLS 1073 Cells/mcL (180-1170); ABSOLUTE LYMPHOCYTES 2751 Cells/mcL (850-3900); HELPER/SUPPRESSOR RATIO 0.86 Ratio (0.86-5.00)
--- NOTE | 2018-05-18 17:32 | CP.PCM.PN ---
Subjective - Date & Time of Evaluation Date of Evaluation: 05/18/18 Time of Evaluation: 17:32 - Subjective Subjective: Denies any new complaints. No new episodes of syncope. Objective - Vital Signs/Intake and Output Vital Signs (last 24 hours): Temp Pulse Resp BP Pulse Ox 97.8 F 91 H 20 125/90 100 05/18/18 15:53 05/18/18 15:53 05/18/18 15:53 05/18/18 15:53 05/18/18 15:53 Intake and Output: 05/18/18 05/18/18 06:59 18:59 Intake Total 120 Balance 120 - Medications Medications: Current Medications Acetaminophen (Tylenol 325mg Tab) 650 mg PO Q4H PRN PRN Reason: pain fever Aspirin (Aspirin Chewable) 81 mg PO DAILY [facility] Last Admin: 05/18/18 10:27 Dose: 81 mg Enoxaparin Sodium (Lovenox) 40 mg SC HS [facility] Famotidine (Pepcid) 40 mg PO DAILY [facility] Last Admin: 05/18/18 10:27 Dose: 40 mg Folic Acid (Folic Acid) 1 mg PO DAILY [facility] Haloperidol (Haldol) 1 mg PO Q6 PRN PRN Reason: Agitation Hydroxyzine HCl (Atarax) 25 mg PO Q6 PRN PRN Reason: Anxiety Lorazepam (Ativan) 0.5 mg PO Q6 PRN PRN Reason: Symptoms of alcohol withdrawl Metoprolol Succinate (Toprol Xl) 25 mg PO DAILY [facility] Last Admin: 05/18/18 10:27 Dose: 25 mg Multivitamins (Hexavitamin) 1 tab PO DAILY [facility] Thiamine HCl (Vitamin B1 Tab) 100 mg PO DAILY [facility] - Labs Labs: 05/18/18 07:52 05/18/18 07:52 - Head Exam Head Exam: NORMOCEPHALIC - Neck Exam Neck Exam: Normal Inspection - Cardiovascular Exam Cardiovascular Exam: REGULAR RHYTHM - Extremities Exam Extremities Exam: Normal Inspection - Neurological Exam Neurological Exam: Alert, Oriented x3 Assessment and Plan (1) NSVT (nonsustained ventricular tachycardia) Assessment & Plan: In sinu snow. Plans for further cardiac work-up when other work-up is completed. Status: Acute (2) SVT (supraventricular tachycardia) Assessment & Plan: Stable. l Status: Acute (3) Near syncope Assessment & Plan: No new episodes. EP study. Status: Acute
[2018-05-18] MEDS: Multiple Vitamins Tab PO SCH (17:43)
--- NOTE | 2018-05-18 17:46 | MRI ---
PROCEDURE: MRI BRAIN WITH AND WITHOUT CONTRAST HISTORY: syncopy r/o gumma RPR. COMPARISON: Noncontrast head CT 05/15/2018. TECHNIQUE: Multiplanar, multisequence MR images of the brain were obtained with and without intravenous contrast enhancement. FINDINGS: HEMORRHAGE: Punctate hemosiderin is identified at the superior margins of the left caudate head likely representing a small cavernoma. DWI: No evidence of an acute or early subacute infarction. BRAIN PARENCHYMA: Diffuse cerebral atrophy chronic microangiopathy are reiterated. Chronic microangiopathy is better appreciated at the shelbie currently. 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 No suspicious interval intracranial findings above or below the tentorium including the brainstem. No suspicious extra-axial fluid collection identified. ENHANCEMENT: No abnormal intracranial enhancement. VENTRICLES: Unremarkable. No hydrocephalus. CRANIUM: Unremarkable. ORBITS: Grossly unremarkable. PARANASAL SINUSES/MASTOIDS: Clear VASCULAR SYSTEM: Skull base flow voids intact. OTHER FINDINGS: None . IMPRESSION: No acute or subacute brain infarction or definite acute or subacute intracranial hemorrhage. 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 Multiple small infarctions are reiterated at the left occipital lobe and bilateral cerebellar hemispheres. Age related neuro degenerative changes are reiterated and remain age-appropriate in overall appearance.
[2018-05-18] MEDS: Enoxaparin 40 mg Syringe SC SCH (22:20)
--- NOTE | 2018-05-19 04:44 | PN ---
DATE: 05/18/2018 SUBJECTIVE: The patient was seen and examined at the bedside on 05/18/2018, looking comfortable. He is on one-to-one. He denies any complaints. No new episodes of syncope. No fever. No chills. No hematuria. No hematochezia. No swelling of the legs. No chest pain. No palpitations. No headaches or dizziness, but is confused. PHYSICAL EXAMINATION: VITAL SIGNS: Temperature 97.8, pulse 91, respiratory rate 20, blood pressure 125/90, pulse oximetry 100%. HEENT: Head is normocephalic, atraumatic. Eyes, PERRLA. Extraocular muscles intact. Conjunctivae clear. Nose patent. Mucous membranes moist. NECK: Supple. No carotid bruit. No JVD or thyromegaly. CHEST: Bilaterally symmetrical. HEART: S1 and S2 positive. LUNGS: Clear to auscultation. ABDOMEN: Soft. Bowel sounds present. No organomegaly. EXTREMITIES: No edema. No cyanosis. NEUROLOGIC: The patient is awake, alert. Moving all four extremities. No focal deficits. MEDICATIONS: Tylenol, aspirin, Haldol, Pepcid, Atarax, Ativan, Toprol, multivitamins. LABORATORY DATA: White blood cells 6.8, hemoglobin 14.2, hematocrit 42.2, platelet 149. Sodium 144, potassium 4.3, BUN 20, cr 1.1, glucose 88. ASSESSMENT AND PLAN: Mr. Roberto Gallego is a 78-year-old male with hyperchloremia, renal insufficiency, nonsustained ventricular tachycardia, in sinus rhythm. No plan with further cardiac workup when other workup is completed. Supraventricular tachycardia now stable. Near syncope, no new episode. Need EP study as per Cardiology. Industrial Commercial Groundskeeper on the case. Neurologist is on the case also. Infectious Disease is also on the case. The patient is anxious, sometime completely confused. He is under one-to-one. The patient has a history of human immunodeficiency virus positive. As per the patient, he used to use a HAART medication, but noncompliant. History of syncope, now stable. Brain MRI is done, reviewed by me. CAT scan of the head and chest done. HIV antibody is reactive. RPR reactive. 1-8 titer. The patient has either active neurosyphilis or latent syphilis. Dyslipidemia. HIV workup in the process. Follow up his FTA antibodies. Consider neuro evaluation. Neurologist is on the case. GI and DVT prophylaxis. According to ID, the patient needs 2-D echo, carotid Doppler. We will follow up. Alia Kumar MD MTDD
[2018-05-19] MEDS: Metoprolol Succinate 25 mg XL Tab PO SCH (09:51)
[2018-05-19] MEDS: Multiple Vitamins Tab PO SCH (09:52)
--- NOTE | 2018-05-19 16:15 | PN ---
DATE: 05/19/2018 NEUROLOGY FOLLOWUP CHIEF COMPLAINT: Followup for syncope. SUBJECTIVE: Cardiology note reviewed and appreciated. The patient had some tachyarrhythmias, which has been stable. MRI of the brain showed chronic bilateral cerebellar as well as the left occipital lobe infarctions, but no enhancement of the meninges. The patient has intermittent confusion and has anxiety. The patient is positive for HIV as well as FTA-ABS consistent with Syphilis. Since the patient is unstable at bedside and HIV positive, to do a lumbar puncture at bedside, we will ask the help of Anesthesia due to the patient not being so cooperative. PAST MEDICAL HISTORY: HIV, noncompliant with HAART, hypertension, and dyslipidemia. REVIEW OF SYSTEMS: A 14-point review of systems negative except as in HPI. FAMILY HISTORY: Noncontributory. SOCIAL HISTORY: No illicit drug use, smoking, or EtOH abuse. ALLERGIES: NO KNOWN DRUG ALLERGIES. MEDICATIONS: Reviewed by nursing reconciliation sheet. LABS: FTA-ABS positive. Sodium 143, potassium 4.2, chloride 108, carbon dioxide 26, BUN 24, creatinine 1.1, random glucose 88. PHYSICAL EXAMINATION: VITAL SIGNS: Temperature 98, pulse rate 65, blood pressure 130/89, respiratory rate 20, oxygen saturation 93% on room air. GENERAL: The patient is sitting up in bed, no acute distress. HEENT: Atraumatic, normocephalic. PERRLA. Extraocular muscles intact. NECK: Supple. No JVD. No adenopathy noted. LUNGS: Clear to auscultation. No adventitious sounds. HEART: S1, S2. Normal rate and rhythm. No murmurs, rubs or gallops. ABDOMEN: Soft, nontender, nondistended. Bowel sounds are present. EXTREMITIES: No clubbing, no cyanosis. Peripheral pulses 2+ felt bilaterally. NEUROLOGIC: The patient is alert and oriented to person and place, not much to month or year. Recall after five minutes 0 out of 3. Poor attention. Tangential thought process. Has anxiety affect. Cranial nerves II through XII are intact. Motor exam: Moves all extremities equally. No pronator drift seen. Sensory exam: Light touch, pinprick, proprioception decreased up to the calves. Decreased vibration of the toes. DTRs are 2+ and 1 at the ankles. Romberg negative. Gait is slightly wide based. ASSESSMENT AND PLAN: 1. A 78-year-old man with history of human immunodeficiency virus, noncompliant with highly active antiretroviral therapy, dyslipidemia, hypertension, who came in with transient syncopal episode while standing up on his face. CT of the head showed no intracranial abnormalities, chronic ischemic changes. The MRI of the brain showed old chronic bilateral cerebellar infarcts and old left occipital infarct and chronic ischemic changes, chronic microangiopathy, but no enhancement of any meninges, likely secondary to vasovagal in nature with an underlying possible tachyarrhythmias. Cardiology is on board. At this time, we recommend, 1. Aspirin and Plavix 75 mg with Lipitor 40 for stroke prevention. 2. Orthostatic vital signs. 3. Given that he is FTA-ABS positive for syphilis and could aid in possible neurosyphilis workup for the confusion. I would recommend a lumbar puncture and we will try at bedside by myself. The patient is unstable, therefore I will get the help of Anesthesia to do the lumbar puncture and much of the help is appreciated and sterile precautions. 4. Physical therapy and occupational therapy evaluation. 5. Follow up with Psychiatry in terms of the underlying delirium. He is on Atarax. At this time, follow up with Infectious Disease recommendations in regards to Syphilis with FTA-ABS positive and human immunodeficiency virus management. Thank you for this followup. Eduardo Schuler MD
--- NOTE | 2018-05-19 17:52 | CP.PCM.PN ---
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 Vasquez recommends LP for duration of antiobiotics D/W Dr. Schuler and Dr. Rico priest anesthesiologist Dr. Richter will do LP all labs ordered to be collected upon LP Objective - Vital Signs/Intake and Output Vital Signs (last 24 hours): Temp Pulse Resp BP Pulse Ox 98 F 66 20 127/81 98 05/19/18 15:27 05/19/18 15:27 05/19/18 15:27 05/19/18 15:27 05/19/18 15:27 Intake and Output: 05/19/18 05/19/18 06:59 18:59 Intake Total 200 800 Balance 200 800 - Medications Medications: Current Medications Acetaminophen (Tylenol 325mg Tab) 650 mg PO Q4H PRN PRN Reason: pain fever Aspirin (Aspirin Chewable) 81 mg PO DAILY [facility] Last Admin: 05/19/18 09:52 Dose: 81 mg Enoxaparin Sodium (Lovenox) 40 mg SC HS [facility] Last Admin: 05/18/18 22:20 Dose: 40 mg Famotidine (Pepcid) 40 mg PO DAILY [facility] Last Admin: 05/19/18 09:52 Dose: 40 mg Folic Acid (Folic Acid) 1 mg PO DAILY [facility] Last Admin: 05/19/18 09:52 Dose: 1 mg Haloperidol (Haldol) 1 mg PO Q6 PRN PRN Reason: Agitation Hydroxyzine HCl (Atarax) 25 mg PO Q6 PRN PRN Reason: Anxiety Lorazepam (Ativan) 0.5 mg PO Q6 PRN PRN Reason: Symptoms of alcohol withdrawl Last Admin: 05/18/18 22:31 Dose: 0.5 mg Metoprolol Succinate (Toprol Xl) 25 mg PO DAILY [facility] Last Admin: 05/19/18 09:51 Dose: 25 mg Multivitamins (Hexavitamin) 1 tab PO DAILY [facility] Last Admin: 05/19/18 09:52 Dose: 1 tab Thiamine HCl (Vitamin B1 Tab) 100 mg PO DAILY [facility] Last Admin: 05/19/18 09:51 Dose: 100 mg - Labs Labs: 05/18/18 07:52 05/18/18 07:52
--- NOTE | 2018-05-19 19:34 | CP.PCM.PN ---
Subjective - Date & Time of Evaluation Date of Evaluation: 05/19/18 Time of Evaluation: 19:32 - Subjective Subjective: Patient with syncope, SVT, VT and Aortic stenosis. Resting comfortably. Denies any new complaints. Objective - Vital Signs/Intake and Output Vital Signs (last 24 hours): Temp Pulse Resp BP Pulse Ox 98 F 66 20 127/81 98 05/19/18 15:27 05/19/18 15:27 05/19/18 15:27 05/19/18 15:27 05/19/18 15:27 Intake and Output: 05/19/18 05/20/18 18:59 06:59 Intake Total 800 Balance 800 - Medications Medications: Current Medications Acetaminophen (Tylenol 325mg Tab) 650 mg PO Q4H PRN PRN Reason: pain fever Aspirin (Aspirin Chewable) 81 mg PO DAILY [facility] Last Admin: 05/19/18 09:52 Dose: 81 mg Enoxaparin Sodium (Lovenox) 40 mg SC HS [facility] Last Admin: 05/18/18 22:20 Dose: 40 mg Famotidine (Pepcid) 40 mg PO DAILY [facility] Last Admin: 05/19/18 09:52 Dose: 40 mg Folic Acid (Folic Acid) 1 mg PO DAILY [facility] Last Admin: 05/19/18 09:52 Dose: 1 mg Haloperidol (Haldol) 1 mg PO Q6 PRN PRN Reason: Agitation Hydroxyzine HCl (Atarax) 25 mg PO Q6 PRN PRN Reason: Anxiety Lorazepam (Ativan) 0.5 mg PO Q6 PRN PRN Reason: Symptoms of alcohol withdrawl Last Admin: 05/18/18 22:31 Dose: 0.5 mg Metoprolol Succinate (Toprol Xl) 25 mg PO DAILY [facility] Last Admin: 05/19/18 09:51 Dose: 25 mg Multivitamins (Hexavitamin) 1 tab PO DAILY [facility] Last Admin: 05/19/18 09:52 Dose: 1 tab Thiamine HCl (Vitamin B1 Tab) 100 mg PO DAILY [facility] Last Admin: 05/19/18 09:51 Dose: 100 mg - Labs Labs: 05/18/18 07:52 05/18/18 07:52 - Head Exam Head Exam: NORMOCEPHALIC - Neck Exam Neck Exam: Normal Inspection - Cardiovascular Exam Cardiovascular Exam: REGULAR RHYTHM, Murmur - Extremities Exam Extremities Exam: Normal Inspection Assessment and Plan (1) NSVT (nonsustained ventricular tachycardia) Assessment & Plan: episodes of SVT. Needs further work-. Plans for CATH with EP when OK with ID and neuro. Status: Acute (2) SVT (supraventricular tachycardia) Status: Acute (3) Near syncope Assessment & Plan: Aortic stenosis may be contributory. Plans for right and left heart as mentioned earlier. Status: Acute
--- NOTE | 2018-05-19 20:38 | CP.PCM.PN ---
Subjective - Date & Time of Evaluation Date of Evaluation: 05/19/18 Time of Evaluation: 20:38 - Subjective Subjective: CHIEF COMPLAINTS TODAY : afebrile, offers no new complaints. ON 1:1 WATCH . denies homosexual activity. THINKS HE GOT HIV FROM SEXUAL CONTACT. ROS. HEENT : N. Resp : No SOB wheezing, cough Cardio : No CP, PND orthopnea GI : No abd. 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 Musculoskel : N Ext. : Pedal pulses intact, no edema or calf pain Derm : N Psych : N. PE. Pt. is alert awake in no distress. V.S As noted in the chart Head ,ear nose,throat and eyes : Normal.NO THRUSH, SMALL LACERATION LT. FOREHEAD. Neck : Supple with normal carotids. Lungs: Clear air entry. Heart : S1 & S2 normal .HR 66/M Abd : Soft non tender with normal bowel sounds. Neuro : Moves all ext. with no localized deficit. Ext : No edema with intact pulses. Neg. calf tenderness Derm : No rashes or decubitus ulcer. Radiology/Labs HIV1/2 AB REACTIVE RPR REACTIVE1:[address] antibody [address] HEAD -VE CT CHEST -VE PE CAROTID DOPPLERS - NORMAL MRI brain w/wo contrast unremarkable as noted. CD4 HELPER CELLS 921/UL Asssessment : HIV +VE ( NOT ON ART ) NEAR SYNCOPY /FALL +VE RPR /FTA-AB REACTIVE R/O NEURO-SYPHLIS VS LATE LATENT SYPHLIS. CARDIAC ARRHYTHMIA HTN. DYSLIPIDEMIA ?EARLY DEMENTIA. Plan : .PATIENT FOR LP TODAY ARRANGED BY NEUROLOGY TO BE DONE BY ANESTHESIOLOGIST HIV W/U IN PROGRESS. HIV GENOTYPE -P F/U HIV VL Case discussed with nurse practitioner MS DICKERSON. FOLLOW-UP SPINAL TAP STUDIES TO RECOMMEND FURTHER THERAPY. Objective - Vital Signs/Intake and Output Vital Signs (last 24 hours): Temp Pulse Resp BP Pulse Ox 98 F 66 20 127/81 98 05/19/18 15:27 05/19/18 15:27 05/19/18 15:27 05/19/18 15:27 05/19/18 15:27 Intake and Output: 05/19/18 05/20/18 18:59 06:59 Intake Total 800 Balance 800 - Medications Medications: Current Medications Acetaminophen (Tylenol 325mg Tab) 650 mg PO Q4H PRN PRN Reason: pain fever Aspirin (Aspirin Chewable) 81 mg PO DAILY [facility] Last Admin: 05/19/18 09:52 Dose: 81 mg Enoxaparin Sodium (Lovenox) 40 mg SC HS [facility] Last Admin: 05/18/18 22:20 Dose: 40 mg Famotidine (Pepcid) 40 mg PO DAILY [facility] Last Admin: 05/19/18 09:52 Dose: 40 mg Folic Acid (Folic Acid) 1 mg PO DAILY [facility] Last Admin: 05/19/18 09:52 Dose: 1 mg Haloperidol (Haldol) 1 mg PO Q6 PRN PRN Reason: Agitation Hydroxyzine HCl (Atarax) 25 mg PO Q6 PRN PRN Reason: Anxiety Lorazepam (Ativan) 0.5 mg PO Q6 PRN PRN Reason: Symptoms of alcohol withdrawl Last Admin: 05/18/18 22:31 Dose: 0.5 mg Metoprolol Succinate (Toprol Xl) 25 mg PO DAILY [facility] Last Admin: 05/19/18 09:51 Dose: 25 mg Multivitamins (Hexavitamin) 1 tab PO DAILY [facility] Last Admin: 05/19/18 09:52 Dose: 1 tab Thiamine HCl (Vitamin B1 Tab) 100 mg PO DAILY [facility] Last Admin: 05/19/18 09:51 Dose: 100 mg - Labs Labs: 05/18/18 07:52 05/18/18 07:52
[2018-05-19] MEDS: Enoxaparin 40 mg Syringe SC SCH (22:11)
--- NOTE | 2018-05-20 06:05 | PN ---
DATE: 05/19/2018 SUBJECTIVE: The patient is a 78-year-old male. The patient is seen and examined at the bedside, looking comfortable. Still is on one-to-one. That moment I did the evaluation, the patient was oriented x3. Discussion done with the nurse practitioner, Edwina, and she spoke to Dr. Vasquez. Dr. Vasquez recommended LP for completion of antibiotics. Then, she had discussion done with Dr. Schuler and Dr. Fred Gómez, anesthesiologist. Dr. Gómez will do LP. All labs ordered to be collected upon LP as per Edwina. No fevers. No chills. No headache or dizziness. PHYSICAL EXAMINATION: VITAL SIGNS: Temperature 98, pulse 56, respiratory rate 20, blood pressure 122/81, pulse oximetry of 98%. HEENT: Head is normocephalic and atraumatic. Eyes PERRLA. Extraocular muscles intact. Conjunctivae clear. Nose patent. Mucous membrane moist. NECK: Supple. No carotid bruits, JVD, or thyromegaly. CHEST: Bilaterally symmetrical. HEART: S1 and S2 positive. LUNGS: Clear to auscultation. ABDOMEN: Soft. Bowel sound present. No organomegaly. EXTREMITIES: No edema. No cyanosis. NEUROLOGIC: The patient is awake and alert. Moving all four extremities. No focal deficits. MEDICATIONS: Tylenol, aspirin, Lovenox, Pepcid, folic acid, Haldol, Atarax, Ativan, Toprol, multivitamins, thiamine. LABORATORY DATA: White blood cells 6.8, hemoglobin 14.2, hematocrit 42.2, platelet 149. Sodium 144, potassium 4.3, BUN 24, creatinine 1.1, glucose 88. ASSESSMENT AND PLAN: Mr. Roberto Gallego came with altered mental status. Has syphilis positive. Infectious Disease, Dr. Vasquez, is on the case. She recommended LP for completion of antibiotics. Then, discussion done with Dr. Schuler and Dr. Fred Gómez, anesthesiologist. They will do lumbar puncture. Seen by Dr. Mayra Alvarez, janitorial assistant and Dr. Binh Vasquez, Infectious Disease. The patient has near syncope, supraventricular tachycardia, aortic stenosis. Resting comfortably. Denies any new complaints. Gastrointestinal and deep venous thrombosis prophylaxis given. Seen by Dr. Eduardo Schuler also. According to the patient, she has history of HIV, used to use HAART, but not using now. Nurse practitioner, Edwina, called the patient's pharmacy but according to them, the patient is using blood pressure medicines only, not HIV medications. Noncompliant with HAART, hypertension and dyslipidemia. REVIEW OF SYSTEMS: A 14-point review of system was negative except for H and P. LABORATORY DATA: FTA antibodies positive. Sodium 146, potassium 4.2, chloride 108, BUN 24, creatinine 1.1. ASSESSMENT AND PLAN: Mr. Roberto Gallego is a 78-year-old male with FTA antibody positive. Has history of human immunodeficiency virus syndrome, noncompliant with human immunodeficiency virus medications, antiviral therapy, dyslipidemia, hypertension, severe syncopal attacks. Auto Air Conditioning Apprentice is on the board, and Infectious Disease is on the board. Continue aspirin, Plavix, Lipitor. Orthostatic vital signs, we will check on that. Given that he is FTA antibody positive and positive for syphilis . Repeat labs. We will follow up. Appreciate the nurse practitioner, Edwina, ID and Neurology. Alia Kumar MD MTDD
[2018-05-20] MEDS: Metoprolol Succinate 25 mg XL Tab PO SCH (10:21)
[2018-05-20] MEDS: Multiple Vitamins Tab PO SCH (10:21)
--- NOTE | 2018-05-20 12:45 | CP.PCM.PN ---
Subjective - Date & Time of Evaluation Date of Evaluation: 05/20/18 Time of Evaluation: 12:43 - Subjective Subjective: Denies any chest pain, some palpitation. No new episodes of syncope. Objective - Vital Signs/Intake and Output Vital Signs (last 24 hours): Temp Pulse Resp BP Pulse Ox 97.2 F L 93 H 20 135/95 H 95 05/20/18 09:08 05/20/18 09:08 05/20/18 09:08 05/20/18 09:08 05/20/18 09:08 Intake and Output: 05/20/18 05/20/18 06:59 18:59 Intake Total 120 Balance 120 - Medications Medications: Current Medications Acetaminophen (Tylenol 325mg Tab) 650 mg PO Q4H PRN PRN Reason: pain fever Aspirin (Aspirin Chewable) 81 mg PO DAILY [facility] Last Admin: 05/20/18 10:21 Dose: 81 mg Enoxaparin Sodium (Lovenox) 40 mg SC HS [facility] Last Admin: 05/19/18 22:11 Dose: 40 mg Famotidine (Pepcid) 40 mg PO DAILY [facility] Last Admin: 05/20/18 10:21 Dose: 40 mg Folic Acid (Folic Acid) 1 mg PO DAILY [facility] Last Admin: 05/20/18 10:21 Dose: 1 mg Haloperidol (Haldol) 1 mg PO Q6 PRN PRN Reason: Agitation Hydroxyzine HCl (Atarax) 25 mg PO Q6 PRN PRN Reason: Anxiety Lorazepam (Ativan) 0.5 mg PO Q6 PRN PRN Reason: Symptoms of alcohol withdrawl Last Admin: 05/18/18 22:31 Dose: 0.5 mg Metoprolol Succinate (Toprol Xl) 25 mg PO DAILY [facility] Last Admin: 05/20/18 10:21 Dose: 25 mg Multivitamins (Hexavitamin) 1 tab PO DAILY [facility] Last Admin: 05/20/18 10:21 Dose: 1 tab Thiamine HCl (Vitamin B1 Tab) 100 mg PO DAILY [facility] Last Admin: 05/20/18 10:21 Dose: 100 mg - Labs Labs: 05/18/18 07:52 05/18/18 07:52 - Head Exam Head Exam: NORMOCEPHALIC - Neck Exam Neck Exam: Normal Inspection - Respiratory Exam Respiratory Exam: NORMAL BREATHING PATTERN - Cardiovascular Exam Cardiovascular Exam: REGULAR RHYTHM, Murmur - Neurological Exam Neurological Exam: Alert Assessment and Plan (1) NSVT (nonsustained ventricular tachycardia) Assessment & Plan: nOnew episodes. Plans for further cardiac work-up when neurology work-up is completed. Status: Acute (2) SVT (supraventricular tachycardia) Status: Acute (3) Near syncope Assessment & Plan: Right and left heat cath for further management. Continue monitoring. Status: Acute
[2018-05-20] MEDS ORDERED: Lidocaine 1% PF (5ml) Amp INJ ONE (16:22)
[2018-05-20 18:11] LABS: FLUID TYPE SPINAL FLUID
[2018-05-20 18:35] LABS: CSF APPEARANCE CLEAR/COLORLESS (CLEAR); CSF VOLUME 3 mL (0-1)
--- NOTE | 2018-05-20 18:52 | PN ---
DATE: 05/20/2018 NEUROLOGY FOLLOWUP CHIEF COMPLAINT: Followup for syncope and confusion. SUBJECTIVE: The patient bouts of confusion and comes back to normal state. 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 Today, I did a lumbar puncture at bedside since his FTA-ABS was positive in his serum and elevated VDRL. His lumbar puncture was done in the left lateral position under sterile precautions. Consent was obtained. I had gave him 1% lidocaine for anesthesia and cleaned his whole back prior to administration of the lumbar puncture needle with . The risks and benefits were explained to the patient and consent was signed. The patient had no issues during the procedure and minimal bleeding was seen. Four tubes of CSF was collected and labeled and sent for further testing. The patient was laid flat for about two hours without any issues. No focal weakness of the extremities. PAST MEDICAL HISTORY: HIV, noncompliant with HAART, hypertension, dyslipidemia. REVIEW OF SYSTEMS: A 14-point review of system is negative except for the HPI. FAMILY HISTORY: Noncontributory. SOCIAL HISTORY: No illicit drug abuse, smoking, or ETOH abuse. ALLERGIES: NO KNOWN DRUG ALLERGIES. MEDICATIONS: Reviewed by nurse per reconciliation sheet. LABORATORY DATA: No new labs done today. PHYSICAL EXAMINATION: VITAL SIGNS: Reviewed. GENERAL: The patient is sitting up in bed, in no acute distress. HEENT: Head is atraumatic and normocephalic. PERRLA. Extraocular muscles intact. NECK: Supple. No JVD. No adenopathy noted. LUNGS: Clear to auscultation. No adventitious sounds. HEART: S1 and S2, normal rate and rhythm. No murmur, rubs, or gallops. ABDOMEN: Soft, nontender, nondistended. Bowel sounds present. EXTREMITIES: No clubbing. No cyanosis. Peripheral pulses 2+ felt bilaterally. NEUROLOGIC: The patient is alert and oriented to person and place, not much to month or year. Recall after five minutes is 0/3. Poor attention span. Slow thought process. He has a very flat affect. Cranial nerves II through XII intact. Motor exam: Moves all extremities equally. No pronator drift seen. Sensory exam: Light touch, pinprick, proprioception, and vibration was decreased up to the calves bilaterally. Decreased vibration at the toes. DTRs are 2+ throughout, 1 at the ankles. Romberg is negative. Gait is sightly wide based. ASSESSMENT AND PLAN: This is a 78-year-old man with history of human immunodeficiency virus, noncompliant with highly active retroviral therapy, dyslipidemia, hypertension, who came in with transient syncopal episode while standing up and hit his face. CT of the head showed no acute intracranial abnormalities. MRI of the brain showed old chronic bilateral cerebellar infarction, old left occipital infarct with chronic ischemic changes and chronic microangiopathy, but no enhancement of the meninges. His initial syncope was likely secondary to underlying tachyarrhythmia with superimposed on vasovagal state. Cardiology is on board and seen the patient. He is again confused, therefore his VDRL was obtained and has highly active human immunodeficiency virus as well as fluorescent treponemal antibody absorption (test) positive in the serum indicating syphilis, and is now status post lumbar puncture to evaluate for neurosyphilis, in which Infectious Disease will help us on the case and the antibiotics. At this time, delirium precautions, he should be on aspirin, Plavix and Lipitor for stroke prevention and continue current present medical management. Thank you for this consult. Eduardo Schuler MD
[2018-05-20 19:56] LABS: CSF MONO/MACROPHAGE 1 % (0-0)
--- NOTE | 2018-05-20 21:56 | CP.PCM.PN ---
Subjective - Date & Time of Evaluation Date of Evaluation: 05/20/18 Time of Evaluation: 21:56 - Subjective Subjective: CHIEF COMPLAINTS TODAY : afebrile, offers no new complaints. ON 1:1 WATCH . s/p LP. CSF WBC 12, 98% L PROTEINS 73 HIGH. GLUCOSE N ROS. HEENT : N. Resp : No SOB wheezing, cough Cardio : No CP, PND orthopnea GI : No abd. Pain, n/v REGISTERED NURSE NURSERY : No headache , focal deficit. Musculoskel : N Ext. : Pedal pulses intact, no edema or calf pain Derm : N Psych : N. PE. Pt. is alert awake in no distress. V.S As noted in the chart Head ,ear nose,throat and eyes : Normal.NO THRUSH, SMALL LACERATION LT. FOREHEAD. Neck : Supple with normal carotids. Lungs: Clear air entry. Heart : S1 & S2 normal .HR 66/M Abd : Soft non tender with normal bowel sounds. Neuro : Moves all ext. with no localized deficit. Ext : No edema with intact pulses. Neg. calf tenderness Derm : No rashes or decubitus ulcer. Radiology/Labs HIV1/2 AB REACTIVE RPR REACTIVE1:8 TITRE /FTA antibody reactive. ? NEUROSYPHLIS CT HEAD -VE CT CHEST -VE PE CAROTID DOPPLERS - NORMAL MRI brain w/wo contrast unremarkable as noted. CD4 HELPER CELLS 921/UL Asssessment : NEUROSYPHLIS HIV +VE ( NOT ON ART ) NEAR SYNCOPY /FALL CARDIAC ARRHYTHMIA HTN. DYSLIPIDEMIA ?EARLY DEMENTIA. PLAN. START PT ON IV AQUEOUS CRYSTALLINE PCN 3MILLION UNITS IVPB Q 6HRLY WHILE AWAITING CSF STUDIES 05/19/18 FOR NEUROSYPHLIS HIV W/U IN PROGRESS. HIV GENOTYPE -P F/U HIV VL Case discussed with DR TORRI WOO.(NEUROLOGY ) FOLLOW-UP SPINAL TAP STUDIES. Objective - Vital Signs/Intake and Output Vital Signs (last 24 hours): Temp Pulse Resp BP Pulse Ox 97.2 F L 67 20 135/95 H 95 05/20/18 09:08 05/20/18 16:00 05/20/18 09:08 05/20/18 09:08 05/20/18 09:08 Intake and Output: 05/20/18 05/21/18 18:59 06:59 Intake Total 280 Balance 280 - Medications Medications: Current Medications Acetaminophen (Tylenol 325mg Tab) 650 mg PO Q4H PRN PRN Reason: pain fever Aspirin (Aspirin Chewable) 81 mg PO DAILY [facility] Last Admin: 05/20/18 10:21 Dose: 81 mg Enoxaparin Sodium (Lovenox) 40 mg SC HS [facility] Last Admin: 05/19/18 22:11 Dose: 40 mg Famotidine (Pepcid) 40 mg PO DAILY [facility] Last Admin: 05/20/18 10:21 Dose: 40 mg Folic Acid (Folic Acid) 1 mg PO DAILY [facility] Last Admin: 05/20/18 10:21 Dose: 1 mg Haloperidol (Haldol) 1 mg PO Q6 PRN PRN Reason: Agitation Hydroxyzine HCl (Atarax) 25 mg PO Q6 PRN PRN Reason: Anxiety Lorazepam (Ativan) 0.5 mg PO Q6 PRN PRN Reason: Symptoms of alcohol withdrawl Last Admin: 05/18/18 22:31 Dose: 0.5 mg Metoprolol Succinate (Toprol Xl) 25 mg PO DAILY [facility] Last Admin: 05/20/18 10:21 Dose: 25 mg Multivitamins (Hexavitamin) 1 tab PO DAILY [facility] Last Admin: 05/20/18 10:21 Dose: 1 tab Thiamine HCl (Vitamin B1 Tab) 100 mg PO DAILY [facility] Last Admin: 05/20/18 10:21 Dose: 100 mg - Labs Labs: 05/18/18 07:52 05/18/18 07:52
[2018-05-20] MEDS: Enoxaparin 40 mg Syringe SC SCH (22:15)
[2018-05-20] MEDS ORDERED: Penicillin G 5 Million Unit Vial IVPB SCH (23:15)
[2018-05-21] MEDS: Metoprolol Succinate 25 mg XL Tab PO SCH (09:44)
[2018-05-21] MEDS: Multiple Vitamins Tab PO SCH (09:44)
--- NOTE | 2018-05-21 11:52 | CP.PCM.PN ---
Subjective - Date & Time of Evaluation Date of Evaluation: 05/21/18 Time of Evaluation: 11:52 - Subjective Subjective: CHIEF COMPLAINTS TODAY : afebrile, s/p LP. 05/20/18 CSF WBC 12, 98% L PROTEINS 73 HIGH. GLUCOSE N gram stain -ve x 24hrs ROS. HEENT : N. Resp : No SOB wheezing, cough Cardio : No CP, PND orthopnea GI : No abd. Pain, n/v CHANGE ROOM ATTENDANT : No headache , focal deficit. Musculoskel : N Ext. : Pedal pulses intact, no edema or calf pain Derm : N Psych : N. PE. Pt. is alert awake in no distress. V.S As noted in the chart Head ,ear nose,throat and eyes : Normal.NO THRUSH, SMALL LACERATION LT. FOREHEAD. Neck : Supple with normal carotids. Lungs: Clear air entry. Heart : S1 & S2 normal .HR 66/M Abd : Soft non tender with normal bowel sounds. Neuro : Moves all ext. with no localized deficit. Ext : No edema with intact pulses. Neg. calf tenderness Derm : No rashes or decubitus ulcer. Radiology/Labs HIV1/2 AB REACTIVE RPR REACTIVE1:8 TITRE /FTA antibody reactive. ? NEUROSYPHLIS CT HEAD -VE CT CHEST -VE PE CAROTID DOPPLERS - NORMAL MRI brain w/wo contrast unremarkable as noted. CD4 HELPER CELLS 921/UL HIV VL HIGH >[id number] COPIES /ML Asssessment : NEUROSYPHLIS HIV +VE ( NOT ON ART ) NEAR SYNCOPY /FALL CARDIAC ARRHYTHMIA HTN. DYSLIPIDEMIA ?EARLY DEMENTIA. PLAN. CONTINUE IV AQUEOUS CRYSTALLINE PCN 3MILLION UNITS IVPB Q 6HRLY WHILE AWAITING CSF STUDIES 05/19/18 FOR NEUROSYPHLIS Discussed with patient about antiretroviral therapy and its compliance 100%. Patient not ready to comply with antiretroviral therapy as he is still in denial and states he needs time to think about it. He will let me know when the time comes. Case discussed with pillowcase sewer MS HANSEN as well as . Patient will need a PICC line to continue IV aqueous crystalline penicillin 3 million units every 6 hourly for 10DAYS. PRESENTLY wILL OBSERVE PATIENT [facility] RE[facility] SECONDARY TO HIGH-DOSE PENICILLIN THERAPY. MANAGER MARKETING TO ARRANGE FOR [facility] BY THURSDAY OR THURSDAY NEXT WEEK. FOLLOW-UP SPINAL TAP STUDIES. Objective - Vital Signs/Intake and Output Vital Signs (last 24 hours): Temp Pulse Resp BP Pulse Ox 97.7 F 83 20 115/74 95 05/21/18 08:55 05/21/18 08:55 05/21/18 08:55 05/21/18 08:55 05/21/18 08:55 Intake and Output: 05/21/18 05/21/18 06:59 18:59 Intake Total 900 Balance 900 - Medications Medications: Current Medications Acetaminophen (Tylenol 325mg Tab) 650 mg PO Q4H PRN PRN Reason: pain fever Aspirin (Aspirin Chewable) 81 mg PO DAILY [facility] Last Admin: 05/21/18 09:44 Dose: 81 mg Enoxaparin Sodium (Lovenox) 40 mg SC HS [facility] Last Admin: 05/20/18 22:15 Dose: 40 mg Famotidine (Pepcid) 40 mg PO DAILY [facility] Last Admin: 05/21/18 09:44 Dose: 40 mg Folic Acid (Folic Acid) 1 mg PO DAILY [facility] Last Admin: 05/21/18 09:44 Dose: 1 mg Haloperidol (Haldol) 1 mg PO Q6 PRN PRN Reason: Agitation Hydroxyzine HCl (Atarax) 25 mg PO Q6 PRN PRN Reason: Anxiety Penicillin G Potassium 3 mu/ (Sodium Chloride) 50 mls @ 100 mls/hr IVPB Q6H [facility] Last Admin: 05/21/18 05:47 Dose: 100 mls/hr Lorazepam (Ativan) 0.5 mg PO Q6 PRN PRN Reason: Symptoms of alcohol withdrawl Last Admin: 05/20/18 22:15 Dose: 0.5 mg Metoprolol Succinate (Toprol Xl) 25 mg PO DAILY [facility] Last Admin: 05/21/18 09:44 Dose: 25 mg Multivitamins (Hexavitamin) 1 tab PO DAILY [facility] Last Admin: 05/21/18 09:44 Dose: 1 tab Thiamine HCl (Vitamin B1 Tab) 100 mg PO DAILY [facility] Last Admin: 05/21/18 09:47 Dose: 100 mg - Labs Labs: 05/18/18 07:52 05/18/18 07:52
--- NOTE | 2018-05-21 16:29 | RAD ---
HISTORY: verify right PICC COMPARISON: 05/15/2018 FINDINGS: LUNGS: Evaluation limited. Lateral portion of right jolie thorax not included in this examination. No infiltrate identified. No active pulmonary disease. PLEURA: No pleural effusion or pneumothorax. Cannot rule out right pleural effusion due to failure to include the costophrenic angle on the right side. CARDIOVASCULAR: Normal heart size. New right PICC catheter terminates in the region of the superior vena cava at the level of the right hilum. OSSEOUS STRUCTURES: No significant abnormalities. VISUALIZED UPPER ABDOMEN: Normal. OTHER FINDINGS: None. IMPRESSION: New right PICC catheter terminates in the region of the superior vena cava. No pneumothorax. Limited examination.
--- NOTE | 2018-05-21 18:25 | CP.PCM.PN ---
Subjective - Date & Time of Evaluation Date of Evaluation: 05/21/18 Time of Evaluation: 18:22 - Subjective Subjective: No chest pain. have palpitations. Objective - Vital Signs/Intake and Output Vital Signs (last 24 hours): Temp Pulse Resp BP Pulse Ox 97.5 F L 132 H 20 135/103 H 96 05/21/18 16:00 05/21/18 16:00 05/21/18 16:00 05/21/18 16:00 05/21/18 16:00 Intake and Output: 05/21/18 05/21/18 06:59 18:59 Intake Total 900 350 Balance 900 350 - Medications Medications: Current Medications Acetaminophen (Tylenol 325mg Tab) 650 mg PO Q4H PRN PRN Reason: pain fever Last Admin: 05/21/18 16:24 Dose: 650 mg Aspirin (Aspirin Chewable) 81 mg PO DAILY [facility] Last Admin: 05/21/18 09:44 Dose: 81 mg Enoxaparin Sodium (Lovenox) 40 mg SC HS [facility] Last Admin: 05/20/18 22:15 Dose: 40 mg Famotidine (Pepcid) 40 mg PO DAILY [facility] Last Admin: 05/21/18 09:44 Dose: 40 mg Folic Acid (Folic Acid) 1 mg PO DAILY [facility] Last Admin: 05/21/18 09:44 Dose: 1 mg Haloperidol (Haldol) 1 mg PO Q6 PRN PRN Reason: Agitation Hydroxyzine HCl (Atarax) 25 mg PO Q6 PRN PRN Reason: Anxiety Penicillin G Potassium 3 mu/ (Sodium Chloride) 50 mls @ 100 mls/hr IVPB Q6H [facility] Last Admin: 05/21/18 17:10 Dose: 100 mls/hr Lorazepam (Ativan) 0.5 mg PO Q6 PRN PRN Reason: Symptoms of alcohol withdrawl Last Admin: 05/21/18 16:24 Dose: 0.5 mg Metoprolol Succinate (Toprol Xl) 25 mg PO DAILY [facility] Last Admin: 05/21/18 09:44 Dose: 25 mg Multivitamins (Hexavitamin) 1 tab PO DAILY [facility] Last Admin: 05/21/18 09:44 Dose: 1 tab Thiamine HCl (Vitamin B1 Tab) 100 mg PO DAILY [facility] Last Admin: 05/21/18 09:47 Dose: 100 mg - Labs Labs: 05/18/18 07:52 05/18/18 07:52 - Head Exam Head Exam: NORMOCEPHALIC - Neck Exam Neck Exam: Normal Inspection - Respiratory Exam Respiratory Exam: NORMAL BREATHING PATTERN - Cardiovascular Exam Cardiovascular Exam: REGULAR RHYTHM, Murmur - Extremities Exam Extremities Exam: Normal Inspection - Neurological Exam Neurological Exam: Alert Assessment and Plan (1) NSVT (nonsustained ventricular tachycardia) Assessment & Plan: Occasional episodes of tachycardia with some symptoms. Plans foe further cardiac work-up when Neurology and infectious work-up is completed. Status: Acute (2) SVT (supraventricular tachycardia) Assessment & Plan: Controlled,Continue current care. Increase dose of beta blockers. Status: Acute (3) Near syncope Assessment & Plan: No new episodes. Monitor. Status: Acute
[2018-05-21] MEDS: Enoxaparin 40 mg Syringe SC SCH (21:23)
--- NOTE | 2018-05-22 01:00 | PN ---
DATE: 05/21/2018 SUBJECTIVE: The patient is a 78-year-old male. The patient was seen and examined at the bedside on 05/21/2018, looking comfortable. No change in the status. No nausea, vomiting, or diarrhea. No headache or dizziness. Has palpitations sometime. LP was done yesterday. PHYSICAL EXAMINATION: VITAL SIGNS: Temperature 97.5, pulse 132, respiratory rate 20, blood pressure 135/103, pulse oximetry of 96%. HEENT: Head is normocephalic and atraumatic. Eyes PERRLA. Extraocular muscles intact. Conjunctivae clear. Nose patent. Mucous membrane moist. NECK: Supple. No carotid bruits. No JVD or thyromegaly. CHEST: Bilaterally symmetrical. HEART: S1 and S2 positive. LUNGS: Clear to auscultation. ABDOMEN: Soft. Bowel sound present. No organomegaly. EXTREMITIES: No edema. No cyanosis. NEUROLOGIC: The patient is awake and alert. Moving all four extremities. No focal deficits. MEDICATIONS: Aspirin, Lovenox, Pepcid, folic acid, Haldol, Atarax, Ativan, Toprol, multivitamins. LABORATORY DATA: White blood cells 6.8, hemoglobin 14.2, hematocrit 42.2, platelet 149. Sodium 144, potassium 4.3, BUN 24, creatinine 1.1, glucose 88. ASSESSMENT AND PLAN: Mr. Roberto Gallego Sr. is a 78-year-old male with hyperchloremia, increased BUN. Has nonsustained ventricular tachycardia, occasional episodes of tachycardia with some symptoms. Planned further cardiac workup by Neurology and Infectious Disease is completed. As per Dr. Alvarez, supraventricular tachycardia controlled. Continuous current care. Increase dose of beta blockers. Near syncope, no new onset of syncope. Chest x-rays done reviewed by me. New right peripherally inserted central catheter terminates in the region of the superior vena cava. No pneumothorax. Limited examination. Discussion done with Dr. Binh Vasquez. The patient has neurosyphilis. As per ID, human immunodeficiency virus positive, not on treatment. Hypertension, dyslipidemia, early dementia. Start the patient on aqueous crystalline penicillin 3 million units IV every 6 hours while waiting for cerebrospinal fluid results. Human immunodeficiency virus treatment in the progress. Human immunodeficiency virus genotype done. Discussion done with Dr. Binh Vasquez. She had discussion done with Dr. Schuler. Lumbar puncture spinal tap was done, and the study results are pending. The patient will need IV antibiotics. Trying to arrange subacute rehab. Meanwhile, continue current treatment. Repeat labs. We will follow up. Alia Kumar MD
[2018-05-22] MEDS: Metoprolol Succinate 25 mg XL Tab PO SCH (10:49)
[2018-05-22] MEDS: Multiple Vitamins Tab PO SCH (10:49)
[2018-05-22 12:00] LABS: SPECIMEN SOURCE Serum
--- NOTE | 2018-05-22 12:41 | CP.PCM.PN ---
Subjective - Date & Time of Evaluation Date of Evaluation: 05/22/18 Time of Evaluation: 12:41 - Subjective Subjective: CHIEF COMPLAINTS TODAY : afebrile, RESTING COMFORTABLY. CONFUSED, FORGETFUL. NO NEW COMPLAINTS. PULLED OUT HIS PICC LINE! WHEN ASKED ,DOES NOT REMEMBER ANYTHING. s/p LP. 05/20/18 CSF WBC 12, 98% L PROTEINS 73 HIGH. GLUCOSE N gram stain -ve x 2 DAYS CSF SMEAR -VE AFB CSF SMEAR -VE FOR FUNGAL ELEMENTS ROS. HEENT : N. Resp : No SOB wheezing, cough Cardio : No CP, PND orthopnea GI : No abd. Pain, n/v PAN SHOVER : No headache , focal deficit. Musculoskel : N Ext. : Pedal pulses intact, no edema or calf pain Derm : N Psych : N. PE. Pt. is alert awake in no distress. V.S As noted in the chart Head ,ear nose,throat and eyes : Normal.NO THRUSH, SMALL LACERATION LT. FOREHEAD. Neck : Supple with normal carotids. Lungs: Clear air entry. Heart : S1 & S2 normal .HR 66/M Abd : Soft non tender with normal bowel sounds. Neuro : Moves all ext. with no localized deficit. Ext : No edema with intact pulses. Neg. calf tenderness Derm : No rashes or decubitus ulcer. Radiology/Labs HIV1/2 AB REACTIVE RPR REACTIVE1:8 TITRE /FTA antibody reactive. ? NEUROSYPHLIS CT HEAD -VE CT CHEST -VE PE CAROTID DOPPLERS - NORMAL MRI brain w/wo contrast unremarkable as noted. 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 DYSLIPIDEMIA ?EARLY DEMENTIA. PLAN. CONTINUE IV AQUEOUS CRYSTALLINE PCN 3MILLION UNITS IVPB Q 6HRLY WHILE AWAITING CSF STUDIES 05/20/18 FOR NEUROSYPHLIS Discussed with patient about antiretroviral therapy and its compliance 100%. Patient not ready to comply with antiretroviral therapy as he is still in denial and states he needs time to think about it. He will let me know when the time comes. Continue IV aqueous crystalline penicillin 3 million units every 6 hourly for TOTAL OF 10DAYS. OBSERVE PATIENT [facility] SECONDARY TO HIGH- DOSE PENICILLIN THERAPY.NOTIFY OF ANY RASH,FEVEROR HYPOTENSION. CASE DISCUSSED WITH CARDIOLOGY. NO CONTRAINDICATION FOR CC. Objective - Vital Signs/Intake and Output Vital Signs (last 24 hours): Temp Pulse Resp BP Pulse Ox 97.1 F L 57 L 20 139/85 96 05/22/18 07:00 05/22/18 07:00 05/22/18 07:00 05/22/18 07:00 05/22/18 07:00 Intake and Output: 05/22/18 05/22/18 06:59 18:59 Intake Total 220 Balance 220 - Medications Medications: Current Medications Acetaminophen (Tylenol 325mg Tab) 650 mg PO Q4H PRN PRN Reason: pain fever Last Admin: 05/21/18 16:24 Dose: 650 mg Aspirin (Aspirin Chewable) 81 mg PO DAILY [facility] Last Admin: 05/22/18 10:50 Dose: 81 mg Enoxaparin Sodium (Lovenox) 40 mg SC HS [facility] Last Admin: 05/21/18 21:23 Dose: 40 mg Famotidine (Pepcid) 40 mg PO DAILY [facility] Last Admin: 05/22/18 10:50 Dose: 40 mg Folic Acid (Folic Acid) 1 mg PO DAILY [facility] Last Admin: 05/22/18 10:49 Dose: 1 mg Haloperidol (Haldol) 1 mg PO Q6 PRN PRN Reason: Agitation Hydroxyzine HCl (Atarax) 25 mg PO Q6 PRN PRN Reason: Anxiety Last Admin: 05/21/18 21:23 Dose: 25 mg Penicillin G Potassium 3 mu/ (Sodium Chloride) 50 mls @ 100 mls/hr IVPB Q6H [facility] Last Admin: 05/22/18 11:07 Dose: 100 mls/hr Lorazepam (Ativan) 0.5 mg PO Q6 PRN PRN Reason: Symptoms of alcohol withdrawl Last Admin: 05/21/18 16:24 Dose: 0.5 mg Metoprolol Succinate (Toprol Xl) 25 mg PO DAILY [facility] Last Admin: 05/22/18 10:49 Dose: 25 mg Multivitamins (Hexavitamin) 1 tab PO DAILY [facility] Last Admin: 05/22/18 10:49 Dose: 1 tab Thiamine HCl (Vitamin B1 Tab) 100 mg PO DAILY [facility] Last Admin: 05/22/18 10:49 Dose: 100 mg - Labs Labs: 05/18/18 07:52 05/18/18 07:52
--- NOTE | 2018-05-22 13:52 | CP.PCM.PN ---
Subjective - Date & Time of Evaluation Date of Evaluation: 05/22/18 Time of Evaluation: 13:50 - Subjective Subjective: Denies any new complaints. Objective - Vital Signs/Intake and Output Vital Signs (last 24 hours): Temp Pulse Resp BP Pulse Ox 97.1 F L 57 L 20 139/85 96 05/22/18 07:00 05/22/18 07:00 05/22/18 07:00 05/22/18 07:00 05/22/18 07:00 Intake and Output: 05/22/18 05/22/18 06:59 18:59 Intake Total 220 Balance 220 - Medications Medications: Current Medications Acetaminophen (Tylenol 325mg Tab) 650 mg PO Q4H PRN PRN Reason: pain fever Last Admin: 05/21/18 16:24 Dose: 650 mg Aspirin (Aspirin Chewable) 81 mg PO DAILY [facility] Last Admin: 05/22/18 10:50 Dose: 81 mg Enoxaparin Sodium (Lovenox) 40 mg SC HS [facility] Last Admin: 05/21/18 21:23 Dose: 40 mg Famotidine (Pepcid) 40 mg PO DAILY [facility] Last Admin: 05/22/18 10:50 Dose: 40 mg Folic Acid (Folic Acid) 1 mg PO DAILY [facility] Last Admin: 05/22/18 10:49 Dose: 1 mg Haloperidol (Haldol) 1 mg PO Q6 PRN PRN Reason: Agitation Hydroxyzine HCl (Atarax) 25 mg PO Q6 PRN PRN Reason: Anxiety Last Admin: 05/21/18 21:23 Dose: 25 mg Penicillin G Potassium 3 mu/ (Sodium Chloride) 50 mls @ 100 mls/hr IVPB Q6H [facility] Last Admin: 05/22/18 11:07 Dose: 100 mls/hr Lorazepam (Ativan) 0.5 mg PO Q6 PRN PRN Reason: Symptoms of alcohol withdrawl Last Admin: 05/21/18 16:24 Dose: 0.5 mg Metoprolol Succinate (Toprol Xl) 25 mg PO DAILY [facility] Last Admin: 05/22/18 10:49 Dose: 25 mg Multivitamins (Hexavitamin) 1 tab PO DAILY [facility] Last Admin: 05/22/18 10:49 Dose: 1 tab Thiamine HCl (Vitamin B1 Tab) 100 mg PO DAILY [facility] Last Admin: 05/22/18 10:49 Dose: 100 mg - Labs Labs: 05/18/18 07:52 05/18/18 07:52 - Head Exam Head Exam: NORMOCEPHALIC - Neck Exam Neck Exam: Normal Inspection - Cardiovascular Exam Cardiovascular Exam: REGULAR RHYTHM, Murmur - Extremities Exam Extremities Exam: Normal Inspection - Neurological Exam Neurological Exam: Alert, Oriented x3 Assessment and Plan (1) NSVT (nonsustained ventricular tachycardia) Assessment & Plan: Controlled. Continue current care. Status: Acute (2) SVT (supraventricular tachycardia) Status: Acute (3) Near syncope Assessment & Plan: Plans for right heart cath. discussed with ID. If OK with neuro. Status: Acute
[2018-05-22] MEDS: Enoxaparin 40 mg Syringe SC SCH (22:31)
--- NOTE | 2018-05-23 01:06 | PN ---
DATE: 05/22/2018 SUBJECTIVE: This is a 78-year-old male. The patient is seen and examined at the bedside. Looking comfortable. No nausea, vomiting, or diarrhea. No hematuria or hematochezia. No swelling of the legs. No chest pain. No palpitation. No headache or dizziness. PHYSICAL EXAMINATION: VITAL SIGNS: Temperature 98.1, pulse 70, respiratory rate 20, blood pressure 132/79. HEENT: Head is normocephalic and atraumatic. Eyes PERRLA. Extraocular movements intact. Conjunctivae clear. Nose patent. Mucous membranes moist. NECK: Supple. No carotid bruits. No JVD or thyromegaly. CHEST: Bilaterally symmetrical. HEART: S1 and S2 positive. LUNGS: Clear to auscultation. ABDOMEN: Soft. Bowel sounds present. No organomegaly. EXTREMITIES: No edema. No cyanosis. NEUROLOGIC: The patient is awake and alert. Moving all four extremities. No focal deficits. MEDICATIONS: Aspirin, Atarax, Ativan, folic acid, Haldol, multivitamin, Lovenox, penicillin, Pepcid, Toprol, Tylenol, vitamin B1. LABORATORY DATA: We do not have recent lab today, but I reviewed old labs. ASSESSMENT AND PLAN: Mr. Roberto Gallego Sr. is a 78-year-old male with nonsustained supraventricular tachycardia, near syncope. Plan is for right heart catheterization as per Dr. Mayra Alvarez. We had discussion done with Infectious Disease and Neurology for stabilization of the patient. Even I had the discussion done with Dr. Binh Vasquez, Infectious Disease, as status post lumbar puncture. The patient has neurosyphilis, human immunodeficiency virus. Has declined getting antibiotics. Repeat labs. We will follow up. Alia Kumar MD
[2018-05-23 09:09] LABS: HEMOGLOBIN 14.2 g/dL (12.0-18.0); MEAN CELL VOLUME 83.2 fL (80.0-94.0); MEAN CORPUSCULAR HEMOGLOBIN 27.5 pg (27.0-31.0); MEAN CORPUSCULAR HGB CONC 33.1 g/dL (33.0-37.0); MEAN PLATELET VOLUME 8.9 fL (7.2-11.7); RBC 5.18 Mil/uL (4.40-5.90); RED CELL DISTRIBUTION WIDTH 15.5 % (11.5-14.5); WHITE BLOOD COUNT 5.8 K/uL (4.8-10.8)
[2018-05-23] MEDS: Multiple Vitamins Tab PO SCH (09:29)
[2018-05-23] MEDS: Metoprolol Succinate 25 mg XL Tab PO SCH (09:29)
[2018-05-23 09:54] LABS: BLOOD UREA NITROGEN 17 mg/dL (9-20); CALCIUM 9.6 mg/dl (8.6-10.4); GFR AFRICAN-AMERICAN > 60; GFR NON-AFRICAN AMERICAN > 60
--- NOTE | 2018-05-23 16:56 | CP.PCM.CON ---
History of Present Illness - History of Present Illness History of Present Illness: EP consult Re: syncope Ventricular tachycardia Chart, imaging reviewed Patient interviewed 78 year old admitted with history of fall and transient loss of consciousness while standing in [employer] No history of seizures palpitations chest pain or dyspnea Post admission had episodes of altered mental status; a lumbar puncture suggested neuro syphyllis Echocardiogram showed mild systolic dysfunction and aortic stenosis Telemetry showed non sustained ventricular tachycardia Exam No distress Sitting upright in chair Normal venous pressures Normal carotids No bruits ?PMI No parasternal heave 3/6 harsh basal ejection mid systolic murmur best at the 2nd RICS with sort A2; normal P2 and S1 No S3/4 or gallop Soft abdomen No edema EKG: sinus; ??Old inferior wall NE Echo: Mild diffuse systolic dysfunction; Aortic stenosis moderate Labs: reviewed Tele: broad complex non sustained tachycardia Past Patient History - Past Medical History & Family History Past Medical History?: Yes - Past Social History Smoking Status: Never Smoked - CARDIAC Hx Cardiac Disorders: Yes Hx Hypertension: Yes - PULMONARY Hx Respiratory Disorders: No - NEUROLOGICAL Hx Neurological Disorder: No - HEENT Hx HEENT Problems: No - RENAL Hx Chronic Kidney Disease: No - ENDOCRINE/METABOLIC Hx Endocrine Disorders: No - HEMATOLOGICAL/ONCOLOGICAL Hx Blood Disorders: Yes Hx Human Immunodeficiency Virus (HIV): Yes - INTEGUMENTARY Hx Dermatological Problems: No - MUSCULOSKELETAL/RHEUMATOLOGICAL Hx Musculoskeletal Disorders: No Hx Falls: No - GASTROINTESTINAL Hx Gastrointestinal Disorders: No - GENITOURINARY/GYNECOLOGICAL Hx Genitourinary Disorders: No - PSYCHIATRIC Hx Psychophysiologic Disorder: No Hx Substance Use: No - SURGICAL HISTORY Hx Surgeries: No - ANESTHESIA Hx Anesthesia: No Meds Allergies/Adverse Reactions: Allergies Allergy/AdvReac Type Severity Reaction Status Date / Time No Known Allergies Allergy Verified 05/15/18 13:51 - Medications Medications: Current Medications Acetaminophen (Tylenol 325mg Tab) 650 mg PO Q4H PRN PRN Reason: pain fever Last Admin: 05/21/18 16:24 Dose: 650 mg Aspirin (Aspirin Chewable) 81 mg PO DAILY [facility] Last Admin: 05/23/18 09:29 Dose: 81 mg Enoxaparin Sodium (Lovenox) 40 mg SC HS [facility] Last Admin: 05/22/18 22:31 Dose: 40 mg Famotidine (Pepcid) 40 mg PO DAILY [facility] Last Admin: 05/23/18 09:29 Dose: 40 mg Folic Acid (Folic Acid) 1 mg PO DAILY [facility] Last Admin: 05/23/18 09:29 Dose: 1 mg Haloperidol (Haldol) 1 mg PO Q6 PRN PRN Reason: Agitation Hydroxyzine HCl (Atarax) 25 mg PO Q6 PRN PRN Reason: Anxiety Last Admin: 05/21/18 21:23 Dose: 25 mg Penicillin G Potassium 3 mu/ (Sodium Chloride) 50 mls @ 100 mls/hr IVPB Q6H [facility] Last Admin: 05/23/18 11:50 Dose: 100 mls/hr Lorazepam (Ativan) 0.5 mg PO Q6 PRN PRN Reason: Symptoms of alcohol withdrawl Last Admin: 05/21/18 16:24 Dose: 0.5 mg Metoprolol Succinate (Toprol Xl) 25 mg PO DAILY [facility] Last Admin: 05/23/18 09:29 Dose: 25 mg Multivitamins (Hexavitamin) 1 tab PO DAILY [facility] Last Admin: 05/23/18 09:29 Dose: 1 tab Thiamine HCl (Vitamin B1 Tab) 100 mg PO DAILY [facility] Last Admin: 05/23/18 11:50 Dose: 100 mg Results - Vital Signs Recent Vital Signs: Last Vital Signs Temp 97.9 F 05/23/18 07:00 Pulse 88 05/23/18 16:03 Resp 20 05/23/18 07:00 BP 154/98 H 05/23/18 07:00 Pulse Ox 96 05/23/18 07:00 - Labs Result Diagrams: 05/23/18 08:59 05/23/18 08:59 Labs: Laboratory Results - last 24 hr 05/23/18 05/23/18 08:59 08:59 WBC 5.8 RBC 5.18 Hgb 14.2 Hct 43.0 MCV 83.2 MCH 27.5 MCHC 33.1 RDW 15.5 H Plt Count 157 MPV 8.9 Sodium 143 Potassium 4.3 Chloride 104 Carbon Dioxide 28 Anion Gap 15 BUN 17 Creatinine 0.9 Est GFR ( Amer) > 60 Est GFR (Non-Af Amer) > 60 Random Glucose 145 H Calcium 9.6 Assessment & Plan - Assessment and Plan (Free Text) Assessment: Mr. Gallego has a single episode of transient loss of consciousness; the mechanism is unclear; assuming a hemodynamic event (cf: neurological) possibilities include a ventricular arrhythmia compounded by aortic stenosis; the occurrence while standing still argues against the valve disease as a primary coach driver of events; a transient complete heart block related to aortic stenosis, an orthostatic process and a vagal event are additional considerations Agree with cardiac cath; in addition would obtain a tilt table study and an EP study and if negative would consider a Loop recorder implant Plan: as outlined
[2018-05-23] MEDS: Enoxaparin 40 mg Syringe SC SCH (21:50)
--- NOTE | 2018-05-23 21:51 | PN ---
DATE: 05/23/2018 SUBJECTIVE: The patient is a 78 years old male. The patient is seen and examined at the bedside on 05/23/2018, looking comfortable, not in distress. No fever. No chills. No headache or dizziness. No hematuria. No hematochezia. No shortness of breath. No coughing. PHYSICAL EXAMINATION: VITAL SIGNS: Temperature 97.9, pulse 88, respiratory rate 20, blood pressure 154/98, pulse oxygenation 96. HEENT: Head is normocephalic and atraumatic. Eyes PERRLA. Extraocular muscles are intact. Conjunctivae clear. Nose patent. Mucous membranes moist. NECK: Supple. No carotid bruits. No thyromegaly. CHEST: Bilaterally symmetrical. HEART: S1, S2 positive. LUNGS: Clear to auscultation. ABDOMEN: Soft. Bowel sounds present. No organomegaly. EXTREMITIES: No edema. No cyanosis. NEUROLOGIC: The patient is awake, alert but sometime getting confused. LABORATORY DATA: White blood cells 5.8, hemoglobin 14.2, hematocrit 43, platelets 157. Sodium 143, potassium 4.3, BUN 70, creatinine 0.9, glucose 145. ASSESSMENT AND PLAN: Mr. Roberto Gallego is a 78 years old male with hyperglycemia. Has single episode of transient loss of consciousness before admission. We do not know the cause of loss of consciousness. Neurologist is on the case. May be ventricular arrhythmia. Public Relations Coordinator is on the case. May be started from aortic stenosis especially when the patient is standing. May be needed valve replacement. Transient complete heart block related to aortic stenosis and also static process and vague event are additional consideration as per adjunct professor of u.s[employer] history and according to adjunct professor of u.s. history, the patient is in need of cath and may be tilt table study and electrophysiologic studies. If negative, consider loop recorder implant as per Dr. Rosalie Giordano. Seen by Dr. Alvarez also. Infectious Disease is on the case. RPR positive, getting treatment. Human immunodeficiency virus positive. Infectious Disease is working on that. Repeat labs. We will follow up. Alia Kumar MD
--- NOTE | 2018-05-23 23:41 | CP.PCM.PN ---
Subjective - Date & Time of Evaluation Date of Evaluation: 05/23/18 Time of Evaluation: 23:41 - Subjective Subjective: CHIEF COMPLAINTS TODAY : afebrile, RESTING COMFORTABLY NO NEW COMPLAINTS. PULLED OUT HIS PICC LINE! WHEN ASKED ,DOES NOT REMEMBER ANYTHING. s/p LP. 05/20/18 CSF WBC 12, 98% L PROTEINS 73 HIGH. GLUCOSE N gram stain -ve x 2 DAYS CSF SMEAR -VE AFB CSF SMEAR -VE FOR FUNGAL ELEMENTS ROS. HEENT : N. Resp : No SOB wheezing, cough Cardio : No CP, PND orthopnea GI : No abd. Pain, n/v VAMP PRESSER : No headache , focal deficit. Musculoskel : N Ext. : Pedal pulses intact, no edema or calf pain Derm : N Psych : N. PE. Pt. is alert awake in no distress. V.S As noted in the chart Head ,ear nose,throat and eyes : Normal.NO THRUSH, SMALL LACERATION LT. FOREHEAD. Neck : Supple with normal carotids. Lungs: Clear air entry. Heart : S1 & S2 normal .HR 66/M Abd : Soft non tender with normal bowel sounds. Neuro : Moves all ext. with no localized deficit. Ext : No edema with intact pulses. Neg. calf tenderness Derm : No rashes or decubitus ulcer. Radiology/Labs RPR REACTIVE1:8 TITRE /FTA antibody reactive. NEUROSYPHLIS S/P LP HIV1/[address] HEAD -VE CT CHEST -VE PE CAROTID DOPPLERS - NORMAL MRI brain w/wo contrast unremarkable as noted. CD4 HELPER CELLS 921/UL HIV VL HIGH >69264 COPIES /ML Asssessment : NEUROSYPHLIS HIV +VE ( NOT ON ART ) NEAR SYNCOPY /FALL CARDIAC ARRHYTHMIA HTN. DYSLIPIDEMIA ?EARLY DEMENTIA. PLAN. CONTINUE IV AQUEOUS CRYSTALLINE PCN 3MILLION UNITS IVPB Q 6HRLY WHILE AWAITING CSF STUDIES 05/20/18 FOR NEUROSYPHLIS Discussed with patient about antiretroviral therapy AGAIN. Patient not ready to comply with antiretroviral therapy as he is still in denial and states he needs time to think about it. Continue IV aqueous crystalline penicillin 3 million units every 6 hourly for TOTAL OF 10DAYS. PT SEEN BY FULL CHARGE BOOKKEEPER FOR CARDIAC ARRHYTHMIA./ NEAR SYNCOPY. CARDIAC W/U IN PROGRESS. Objective - Vital Signs/Intake and Output Vital Signs (last 24 hours): Temp Pulse Resp BP Pulse Ox 97.9 F 64 20 142/80 95 05/23/18 15:11 05/23/18 21:00 05/23/18 15:11 05/23/18 15:11 05/23/18 15:11 - Medications Medications: Current Medications Acetaminophen (Tylenol 325mg Tab) 650 mg PO Q4H PRN PRN Reason: pain fever Last Admin: 05/21/18 16:24 Dose: 650 mg Aspirin (Aspirin Chewable) 81 mg PO DAILY [facility] Last Admin: 05/23/18 09:29 Dose: 81 mg Enoxaparin Sodium (Lovenox) 40 mg SC HS [facility] Last Admin: 05/23/18 21:50 Dose: 40 mg Famotidine (Pepcid) 40 mg PO DAILY [facility] Last Admin: 05/23/18 09:29 Dose: 40 mg Folic Acid (Folic Acid) 1 mg PO DAILY [facility] Last Admin: 05/23/18 09:29 Dose: 1 mg Haloperidol (Haldol) 1 mg PO Q6 PRN PRN Reason: Agitation Hydroxyzine HCl (Atarax) 25 mg PO Q6 PRN PRN Reason: Anxiety Last Admin: 05/21/18 21:23 Dose: 25 mg Penicillin G Potassium 3 mu/ (Sodium Chloride) 50 mls @ 100 mls/hr IVPB Q6H [facility] Last Admin: 05/23/18 17:12 Dose: 100 mls/hr Lorazepam (Ativan) 0.5 mg PO Q6 PRN PRN Reason: Symptoms of alcohol withdrawl Last Admin: 05/21/18 16:24 Dose: 0.5 mg Metoprolol Succinate (Toprol Xl) 25 mg PO DAILY [facility] Last Admin: 05/23/18 09:29 Dose: 25 mg Multivitamins (Hexavitamin) 1 tab PO DAILY [facility] Last Admin: 05/23/18 09:29 Dose: 1 tab Thiamine HCl (Vitamin B1 Tab) 100 mg PO DAILY [facility] Last Admin: 05/23/18 11:50 Dose: 100 mg - Labs Labs: 05/23/18 08:59 05/23/18 08:59
[2018-05-24 01:01] LABS: HTLV-I-II AB W/REFL CONF Nonreactive (Nonreactive)
--- NOTE | 2018-05-24 09:07 | PN ---
DATE: 05/20/2018 SUBJECTIVE: The patient was seen and examined at bedside on 05/20/2018. Still on one to one. No change of the status. Looking comfortable. No nausea, vomiting or diarrhea. No headache, no dizziness. No chest pain, no palpitation. No hematuria, no hematochezia. PHYSICAL EXAMINATION: VITAL SIGNS: Temperature 98.6, pulse 80, respiratory rate 18, blood pressure 120/80. HEENT: Head normocephalic, atraumatic. Eyes, PERRLA. Extraocular muscles intact. Conjunctivae clear. Nose patent. Mucous membranes moist. NECK: Supple. No carotid bruits, JVD or thyromegaly. CHEST: Bilaterally symmetrical. HEART: S1 and S2 positive. LUNGS: Clear to auscultation. ABDOMEN: Soft. Bowel sound present. No organomegaly. EXTREMITIES: No edema, no cyanosis. NEUROLOGIC: The patient is awake, alert but confused. Moving all 4 extremities. Obeying simple orders. LABORATORY DATA: White blood cells 6.8, hemoglobin 14.2, hematocrit 42.2, platelet 149. Sodium 144, potassium 4.3, BUN 24, creatinine 1.1. ASSESSMENT AND PLAN: a 78-year-old male with multiple medical problems, hyperchloremia, human immunodeficiency virus positive, Treponema pallidum FTA antibodies reactive high, altered mental status, noncompliant with heart medications, hypertension, dyslipidemia, positive syncopal episode. CT of head is reviewed by me. MRI of the brain reviewed by me. Neurologist is on the case. Stone Gluer is on the case. History of tachycardia. The patient is on delirium precautions. LP done by Dr. Eduardo Schuler. GI/DVT prophylaxis. Repeat labs. ID is on the case. Stone Gluer is on the case. We will follow up. Alia Kumar MD MTDD
[2018-05-24] MEDS: Multiple Vitamins Tab PO SCH (09:43)
[2018-05-24] MEDS: Metoprolol Succinate 25 mg XL Tab PO SCH (09:43)
--- NOTE | 2018-05-24 17:59 | CP.PCM.PN ---
Subjective - Date & Time of Evaluation Date of Evaluation: 05/24/18 Time of Evaluation: 17:58 - Subjective Subjective: CHIEF COMPLAINTS TODAY : afebrile, RESTING COMFORTABLY NO NEW COMPLAINTS. AGREES TO TAKE ART EXPLAINED. ( Will take whatever you give ) BUT DOES NOT WANT TO DISCUSS HIV STATUS. s/p LP. 05/20/18 CSF WBC 12, 98% L PROTEINS 73 HIGH. GLUCOSE N gram stain -ve x 2 DAYS CSF SMEAR -VE AFB CSF SMEAR -VE FOR FUNGAL ELEMENTS ROS. HEENT : N. Resp : No SOB wheezing, cough Cardio : No CP, PND orthopnea GI : No abd. Pain, n/v FULL STACK PHP DEVELOPER : No headache , focal deficit. Musculoskel : N Ext. : Pedal pulses intact, no edema or calf pain Derm : N Psych : N. PE. Pt. is alert awake in no distress. V.S As noted in the chart Head ,ear nose,throat and eyes : Normal.NO THRUSH, SMALL LACERATION LT. FOREHEAD. Neck : Supple with normal carotids. Lungs: Clear air entry. Heart : S1 & S2 normal .HR 66/M Abd : Soft non tender with normal bowel sounds. Neuro : Moves all ext. with no localized deficit. Ext : No edema with intact pulses. Neg. calf tenderness Derm : No rashes or decubitus ulcer. Radiology/Labs RPR REACTIVE1:8 TITRE /FTA antibody reactive. NEUROSYPHLIS S/P LP HIV1/[address] HEAD -VE CT CHEST -VE PE CAROTID DOPPLERS - NORMAL MRI brain w/wo contrast unremarkable as noted. CD4 HELPER CELLS 921/UL HIV VL HIGH >05224 COPIES /ML Asssessment : NEUROSYPHLIS HIV +VE ( NOT ON ART ) NEAR SYNCOPY /FALL CARDIAC ARRHYTHMIA HTN. DYSLIPIDEMIA ?EARLY DEMENTIA. PLAN. CONTINUE IV AQUEOUS CRYSTALLINE PCN 3MILLION UNITS IVPB Q 6HRLY WHILE AWAITING CSF STUDIES 05/20/18 FOR NEUROSYPHLIS Discussed with patient about antiretroviral therapy AGAIN.-AGREES TO TAKE. START TIVICAY 50 MG BY MOUTH ONCE A DAY DAILY. 05/24/18 STARTING A.M. START TRUVADA 200/300MG ONE TABLET ONCE A DAY DAILY 05/24/18 STARTING A.M. Continue IV aqueous crystalline penicillin 3 million units every 6 hourly for TOTAL OF 10DAYS. 05/20/18.-05/30/18 PT SEEN BY FARM TRACTOR MECHANIC FOR CARDIAC ARRHYTHMIA./ NEAR SYNCOPY. CARDIAC W/U IN PROGRESS. Objective - Vital Signs/Intake and Output Vital Signs (last 24 hours): Temp Pulse Resp BP Pulse Ox 97.7 F 59 L 20 127/72 99 05/24/18 16:00 05/24/18 16:37 05/24/18 16:00 05/24/18 16:00 05/24/18 16:00 - Medications Medications: Current Medications Acetaminophen (Tylenol 325mg Tab) 650 mg PO Q4H PRN PRN Reason: pain fever Last Admin: 05/21/18 16:24 Dose: 650 mg Aspirin (Aspirin Chewable) 81 mg PO DAILY [facility] Last Admin: 05/24/18 09:43 Dose: 81 mg Enoxaparin Sodium (Lovenox) 40 mg SC HS [facility] Last Admin: 05/23/18 21:50 Dose: 40 mg Famotidine (Pepcid) 40 mg PO DAILY [facility] Last Admin: 05/24/18 09:43 Dose: 40 mg Folic Acid (Folic Acid) 1 mg PO DAILY [facility] Last Admin: 05/24/18 09:43 Dose: 1 mg Haloperidol (Haldol) 1 mg PO Q6 PRN PRN Reason: Agitation Hydroxyzine HCl (Atarax) 25 mg PO Q6 PRN PRN Reason: Anxiety Last Admin: 05/21/18 21:23 Dose: 25 mg Penicillin G Potassium 3 mu/ (Sodium Chloride) 50 mls @ 100 mls/hr IVPB Q6H [facility] Last Admin: 05/24/18 17:29 Dose: 100 mls/hr Lorazepam (Ativan) 0.5 mg PO Q6 PRN PRN Reason: Symptoms of alcohol withdrawl Last Admin: 05/21/18 16:24 Dose: 0.5 mg Metoprolol Succinate (Toprol Xl) 25 mg PO DAILY [facility] Last Admin: 05/24/18 09:43 Dose: 25 mg Multivitamins (Hexavitamin) 1 tab PO DAILY [facility] Last Admin: 05/24/18 09:43 Dose: 1 tab Thiamine HCl (Vitamin B1 Tab) 100 mg PO DAILY [facility] Last Admin: 05/24/18 09:43 Dose: 100 mg - Labs Labs: 05/23/18 08:59 05/23/18 08:59
[2018-05-24] MEDS: Emtricitabine-Tenofovir 200 mg-300 mg Tab PO SCH (18:52)
[2018-05-24] MEDS: Enoxaparin 40 mg Syringe SC SCH (21:32)
--- NOTE | 2018-05-25 06:20 | PN ---
DATE: 05/24/2018 SUBJECTIVE: The patient is seen and examined at the bedside, looking comfortable, awake and alert. No fever, no chills. No nausea, vomiting, or diarrhea. No hematuria or hematochezia. No swelling of the legs. No chest pain or palpitation. PHYSICAL EXAMINATION: VITAL SIGNS: Temperature 97.7, pulse 59, respiratory rate 20, blood pressure 127/72, pulse oximetry 99. HEENT: Head, normocephalic and atraumatic. Eyes, PERRLA. Extraocular movements intact. Conjunctivae clear. Nose patent. Mucous membranes moist. NECK: Supple. No carotid bruits, JVD, or thyromegaly. CHEST: Bilaterally symmetrical. HEART: S1 and S2 positive. LUNGS: Clear to auscultation. ABDOMEN: Soft. Bowel sounds present. No organomegaly. EXTREMITIES: No edema. No cyanosis. NEUROLOGIC: The patient is awake and alert, moving all four extremities. No focal deficits. MEDICATIONS: Tylenol, aspirin, Lovenox, Pepcid, folic acid, Haldol, Atarax, penicillin G, Ativan, metoprolol, thiamine. LABORATORY DATA: White blood cells 5.8, hemoglobin 14.2, hematocrit 43, platelet 157. Sodium 143, potassium 4, BUN 17, creatinine 0.9, glucose 145. ASSESSMENT AND PLAN: Mr. 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 CAT scan of chest and head negative. CD4 helper cells 921. Human immunodeficiency virus viral load higher than 12,000 copies. Near-syncope, fall, cardiac arrhythmia, hypertension, dyslipidemia, early dementia. Continue aqueous crystalline penicillin , 3 millions units intravenous every 6 hours. Started on human immunodeficiency virus medication. Gastrointestinal and deep venous thrombosis prophylaxis. Continue present treatment. 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 Alia Kumar MD MTDD
[2018-05-25 07:40] LABS: HEMOGLOBIN 14.3 g/dL (12.0-18.0); MEAN CELL VOLUME 83.1 fL (80.0-94.0); MEAN CORPUSCULAR HEMOGLOBIN 27.8 pg (27.0-31.0); MEAN CORPUSCULAR HGB CONC 33.4 g/dL (33.0-37.0); RBC 5.14 Mil/uL (4.40-5.90); WHITE BLOOD COUNT 5.6 K/uL (4.8-10.8)
[2018-05-25 07:50] LABS: ALB/GLOB RATIO 0.9 (1.0-2.1); ALBUMIN 3.9 g/dL (3.5-5.0); ALT/SGPT 41 U/L (21-72); AST/SGOT 35 U/L (17-59); BLOOD UREA NITROGEN 17 mg/dL (9-20); CALCIUM 9.4 mg/dl (8.6-10.4); GFR AFRICAN-AMERICAN > 60; GFR NON-AFRICAN AMERICAN > 60
[2018-05-25 08:06] LABS: HEPATITIS B SURFACE AG Negative (NEGATIVE)
[2018-05-25 08:12] LABS: HEPATITIS A IGM NEGATIVE (NEGATIVE); HEPATITIS B CORE AB NEGATIVE (NEGATIVE)
[2018-05-25 08:23] LABS: HEPATITIS C ANTIBODY NEGATIVE (NEGATIVE)
[2018-05-25 09:01] LABS: HEPATITIS C ANTIBODY NEGATIVE (NEGATIVE)
[2018-05-25] MEDS: Emtricitabine-Tenofovir 200 mg-300 mg Tab PO SCH (10:17)
[2018-05-25] MEDS: Metoprolol Succinate 25 mg XL Tab PO SCH (10:18)
[2018-05-25] MEDS: Multiple Vitamins Tab PO SCH (10:18)
--- NOTE | 2018-05-25 11:35 | CP.PCM.PN ---
Subjective - Date & Time of Evaluation Date of Evaluation: 05/25/18 Time of Evaluation: 11:35 - Subjective Subjective: CHIEF COMPLAINTS TODAY : afebrile, RESTING COMFORTABLY NO NEW COMPLAINTS. ON IV PENCILLIN RX FOR NEUROSYPHLIS s/p LP. 05/20/18 ROS. HEENT : N. Resp : No SOB wheezing, cough Cardio : No CP, PND orthopnea GI : No abd. 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 Musculoskel : N Ext. : Pedal pulses intact, no edema or calf pain Derm : N Psych : N. PE. Pt. is alert awake in no distress. V.S As noted in the chart Head ,ear nose,throat and eyes : Normal.NO THRUSH, SMALL LACERATION LT. FOREHEAD HEALED/DRY Neck : Supple with normal carotids. Lungs: Clear air entry. Heart : S1 & S2 normal .HR 66/M Abd : Soft non tender with normal bowel sounds. Neuro : Moves all ext. with no localized deficit. Ext : No edema with intact pulses. Neg. calf tenderness Derm : No rashes or decubitus ulcer. Radiology/Labs RPR REACTIVE1:8 TITRE /FTA antibody reactive. NEUROSYPHLIS S/P LP HIV1/[address] HEAD -VE CT CHEST -VE PE CAROTID DOPPLERS - NORMAL MRI brain w/wo contrast unremarkable as noted. CD4 HELPER CELLS 921/UL HIV VL HIGH >96477 COPIES /ML Asssessment : NEUROSYPHLIS HIV +VE ( NOT ON ART ) NEAR SYNCOPY /FALL CARDIAC ARRHYTHMIA HTN. DYSLIPIDEMIA ?EARLY DEMENTIA. PLAN. CONTINUE IV AQUEOUS CRYSTALLINE PCN 3MILLION UNITS IVPB Q 6HRLY WHILE AWAITING CSF STUDIES 05/20/18 FOR NEUROSYPHLIS . STARTED TIVICAY 50 MG BY MOUTH ONCE A DAY DAILY. 05/24/18 STARTED TRUVADA 200/300MG ONE TABLET ONCE A DAY DAILY 05/24/18 Continue IV aqueous crystalline penicillin 3 million units every 6 hourly for TOTAL OF 10DAYS. 05/20/18.-05/30/18 CARDIAC W/U IN PROGRESS. Objective - Vital Signs/Intake and Output Vital Signs (last 24 hours): Temp Pulse Resp BP Pulse Ox 98.3 F 59 L 20 149/93 H 94 L 05/25/18 08:40 05/25/18 08:40 05/25/18 08:40 05/25/18 08:40 05/25/18 08:40 Intake and Output: 05/25/18 05/25/18 06:59 18:59 Output Total 650 Balance -650 - Medications Medications: Current Medications Acetaminophen (Tylenol 325mg Tab) 650 mg PO Q4H PRN PRN Reason: pain fever Last Admin: 05/21/18 16:24 Dose: 650 mg Aspirin (Aspirin Chewable) 81 mg PO DAILY [facility] Last Admin: 05/25/18 10:18 Dose: 81 mg Dolutegravir Sodium (Tivicay) 50 mg PO DAILY [facility] PRN Reason: Protocol Last Admin: 05/25/18 10:18 Dose: 50 mg Emtricitabine/Tenofovir (Truvada 200 Mg-300 Mg) 1 tab PO DAILY [facility] PRN Reason: Protocol Last Admin: 05/25/18 10:17 Dose: 1 tab Enoxaparin Sodium (Lovenox) 40 mg SC HS [facility] Last Admin: 05/24/18 21:32 Dose: 40 mg Famotidine (Pepcid) 40 mg PO DAILY [facility] Last Admin: 05/25/18 10:18 Dose: 40 mg Folic Acid (Folic Acid) 1 mg PO DAILY [facility] Last Admin: 05/25/18 10:17 Dose: 1 mg Haloperidol (Haldol) 1 mg PO Q6 PRN PRN Reason: Agitation Hydroxyzine HCl (Atarax) 25 mg PO Q6 PRN PRN Reason: Anxiety Last Admin: 05/21/18 21:23 Dose: 25 mg Penicillin G Potassium 3 mu/ (Sodium Chloride) 50 mls @ 100 mls/hr IVPB Q6H [facility] Last Admin: 05/25/18 05:56 Dose: 100 mls/hr Lorazepam (Ativan) 0.5 mg PO Q6 PRN PRN Reason: Symptoms of alcohol withdrawl Last Admin: 05/21/18 16:24 Dose: 0.5 mg Metoprolol Succinate (Toprol Xl) 25 mg PO DAILY [facility] Last Admin: 05/25/18 10:18 Dose: 25 mg Multivitamins (Hexavitamin) 1 tab PO DAILY [facility] Last Admin: 05/25/18 10:18 Dose: 1 tab Thiamine HCl (Vitamin B1 Tab) 100 mg PO DAILY [facility] Last Admin: 05/25/18 10:17 Dose: 100 mg - Labs Labs: 05/25/18 07:11 05/25/18 07:11
[2018-05-25] MEDS: Enoxaparin 40 mg Syringe SC SCH (21:59)
--- NOTE | 2018-05-26 07:37 | PN ---
DATE: 05/25/2018 SUBJECTIVE: The patient is a 78 years old male. The patient was seen and examined at the bedside on 05/25/2018. Looking comfortable. No nausea, vomiting, or diarrhea. No hematuria or hematochezia. No swelling of the legs. No chest pain or palpitation. No headache or dizziness. PHYSICAL EXAMINATION: VITAL SIGNS: Temperature 98.6, pulse 59, respiratory rate 20, blood pressure 120/80 , pulse oximetry 94. HEENT: Head, normocephalic and atraumatic. Eyes: PERRLA. Extraocular muscles intact. Conjunctivae clear. Nose patent. Mucous membranes moist. NECK: Supple. No carotid bruit. No JVD or thyromegaly. CHEST: Bilaterally symmetrical. HEART: S1 and S2 positive. LUNGS: Clear to auscultation. ABDOMEN: Soft. Bowel sounds present. No organomegaly. EXTREMITIES: No edema. No cyanosis. NEUROLOGICAL: The patient is awake, alert. Moving all four extremities. No focal deficits. MEDICATIONS: Tylenol, aspirin, Tivicay, Truvada, Lovenox, famotidine, folic acid, Haldol, hydroxyzine, Pepcid, lorazepam, metoprolol, multivitamin, thiamine. LABORATORY DATA: White blood cell 5.6, hemoglobin 14.3, hematocrit 42.3, and platelets 147. Sodium 140, potassium 4.1, BUN 70, creatinine 1.1, glucose 94. ASSESSMENT AND PLAN: Mr. Roberto Gallego is a 78 years old male with multiple medical problems of neurosyphilis, getting penicillin G; human immunodeficiency virus positive; status post lumbar puncture. Human immunodeficiency virus 1/2 antibodies reactive. Carotid Doppler negative. CAT scan of chest and head negative. CD4 helper count is 921. Human immunodeficiency virus viral load is higher than 12,000. The patient had near-syncope, fall, cardiac arrhythmia, hypertension, dyslipidemia. Continue aqueous crystalline penicillin 3 millions units , dementia. Gastrointestinal and deep venous thrombosis prophylaxis. Repeat labs. Discussion done with Dr. Alvarez. The patient is scheduled for catheterization tomorrow. We will plan according to that. Alia Kumar MD [facility] # [id number] MTDD
[2018-05-26 08:18] VITALS: O2SAT 94
[2018-05-26] MEDS: Multiple Vitamins Tab PO SCH (09:27)
[2018-05-26] MEDS: Metoprolol Succinate 25 mg XL Tab PO SCH ×2 (09:27→09:32)
[2018-05-26] MEDS: Emtricitabine-Tenofovir 200 mg-300 mg Tab PO SCH (09:28)
[2018-05-26 09:32] LABS: INR 1.1; PROTHROMBIN TIME 12.2 SECONDS (9.7-12.2)
[2018-05-26] MEDS ORDERED: Lidocaine Hydrochloride 10 ML INJ ONE ×2 (11:01→11:17)
[2018-05-26] MEDS ORDERED: Iodixanol 320 MG/ML 100 ML BOTTLE IV ONE ×2 (11:01→11:54)
[2018-05-26] MEDS ORDERED: Midazolam 2 MG/2 ML VIAL ONE (11:12)
[2018-05-26] MEDS ORDERED: Lidocaine Hydrochloride 5 ML INJ ONE (11:19)
[2018-05-26 11:50] LABS: ARTERIAL BLOOD GAS HCO3 25.6 mmol/L (21-28); ARTERIAL BLOOD GAS HEMOGLOBIN 14.5 g/dL (11.7-17.4); ARTERIAL BLOOD GAS O2 SAT 98.8 % (95-98); ARTERIAL BLOOD GAS PCO2 39 mm/Hg (35-45); ARTERIAL BLOOD GAS PH 7.42 (7.35-7.45); ARTERIAL BLOOD GAS PO2 91 mm/Hg (80-100); ARTERIAL BLOOD GAS TCO2 26.5 mmol/L (22-28)
--- NOTE | 2018-05-26 12:14 | CP.PCM.PN ---
Subjective - Date & Time of Evaluation Date of Evaluation: 05/26/18 Time of Evaluation: 12:12 - Subjective Subjective: No new complaints. Objective - Vital Signs/Intake and Output Vital Signs (last 24 hours): Temp Pulse Resp BP Pulse Ox 98.3 F 72 20 152/89 H 94 L 05/26/18 08:17 05/26/18 08:17 05/26/18 08:17 05/26/18 08:17 05/26/18 08:17 Intake and Output: 05/26/18 05/26/18 06:59 18:59 Intake Total 50 Balance 50 - Medications Medications: Current Medications Acetaminophen (Tylenol 325mg Tab) 650 mg PO Q4H PRN PRN Reason: pain fever Last Admin: 05/21/18 16:24 Dose: 650 mg Aspirin (Aspirin Chewable) 81 mg PO DAILY [facility] Last Admin: 05/26/18 09:27 Dose: 81 mg Dolutegravir Sodium (Tivicay) 50 mg PO DAILY [facility] PRN Reason: Protocol Last Admin: 05/26/18 09:26 Dose: 50 mg Emtricitabine/Tenofovir (Truvada 200 Mg-300 Mg) 1 tab PO DAILY [facility] PRN Reason: Protocol Last Admin: 05/26/18 09:28 Dose: 1 tab Famotidine (Pepcid) 40 mg PO DAILY [facility] Last Admin: 05/26/18 09:27 Dose: 40 mg Folic Acid (Folic Acid) 1 mg PO DAILY [facility] Last Admin: 05/26/18 09:27 Dose: 1 mg Haloperidol (Haldol) 1 mg PO Q6 PRN PRN Reason: Agitation Hydroxyzine HCl (Atarax) 25 mg PO Q6 PRN PRN Reason: Anxiety Last Admin: 05/21/18 21:23 Dose: 25 mg Penicillin G Potassium 3 mu/ (Sodium Chloride) 50 mls @ 100 mls/hr IVPB Q6H [facility] Last Admin: 05/26/18 06:22 Dose: 100 mls/hr Metoprolol Succinate (Toprol Xl) 25 mg PO DAILY [facility] Last Admin: 05/26/18 09:32 Dose: Not Given Multivitamins (Hexavitamin) 1 tab PO DAILY [facility] Last Admin: 05/26/18 09:27 Dose: 1 tab Thiamine HCl (Vitamin B1 Tab) 100 mg PO DAILY [facility] Last Admin: 05/26/18 09:27 Dose: 100 mg - Labs Labs: 05/25/18 07:11 05/25/18 07:11 PT 12.2 SECONDS (9.7-12.2) 05/26/18 09:20 INR 1.1 05/26/18 09:20 APTT 33 SECONDS (21-34) 05/26/18 09:20 - Head Exam Head Exam: NORMOCEPHALIC - Respiratory Exam Respiratory Exam: NORMAL BREATHING PATTERN - Cardiovascular Exam Cardiovascular Exam: REGULAR RHYTHM - Extremities Exam Extremities Exam: Normal Inspection - Neurological Exam Neurological Exam: Alert Assessment and Plan (1) NSVT (nonsustained ventricular tachycardia) Assessment & Plan: Beta blockers and electrolyte balance. Status: Acute (2) SVT (supraventricular tachycardia) Status: Acute (3) Near syncope Assessment & Plan: No new episodes. Most likely Vasovagal. Status: Acute (4) CAD (coronary artery disease) Assessment & Plan: Multi-vessel disease. However given other issues will recommend medical management for now with DAPT, beta blockers and lipid lowering agents. May transfer to sub acute. Follow-up as out patient in two weeks. Discussed with team. Status: Acute
[2018-05-26] MEDS ORDERED: Sodium Chloride 0.9% 500 ML IV SCH (13:00)
--- NOTE | 2018-05-26 13:48 | CP.PCM.PN ---
Subjective - Date & Time of Evaluation Date of Evaluation: 05/26/18 Time of Evaluation: 13:48 - Subjective Subjective: CHIEF COMPLAINTS TODAY : afebrile, RESTING COMFORTABLY NO NEW COMPLAINTS. ON IV PENCILLIN RX FOR NEUROSYPHLIS TOLERATING ANTIRETROVIRAL THERAPY. s/p LP. 05/20/18 ROS. HEENT : N. Resp : No SOB wheezing, cough Cardio : No CP, PND orthopnea GI : No abd. 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 Musculoskel : N Ext. : Pedal pulses intact, no edema or calf pain Derm : N Psych : N. PE. Pt. is alert awake in no distress. V.S As noted in the chart Head ,ear nose,throat and eyes : Normal.NO THRUSH, SMALL LACERATION LT. FOREHEAD HEALED/DRY Neck : Supple with normal carotids. Lungs: Clear air entry. Heart : S1 & S2 normal .HR 66/M Abd : Soft non tender with normal bowel sounds. Neuro : Moves all ext. with no localized deficit. Ext : No edema with intact pulses. Neg. calf tenderness Derm : No rashes or decubitus ulcer. Radiology/Labs RPR REACTIVE1:8 TITRE /FTA antibody reactive. NEUROSYPHLIS S/P LP HIV1/[address] HEAD -VE CT CHEST -VE PE CAROTID DOPPLERS - NORMAL MRI brain w/wo contrast unremarkable as noted. CD4 HELPER CELLS 921/UL HIV VL HIGH >00346 COPIES /ML Asssessment : NEUROSYPHLIS HIV +VE ( NOT ON ART ) NEAR SYNCOPY /FALL CARDIAC ARRHYTHMIA HTN. DYSLIPIDEMIA ?EARLY DEMENTIA. PLAN. CONTINUE IV AQUEOUS CRYSTALLINE PCN 3MILLION UNITS IVPB Q 6HRLY. AWAITING CSF VDRL STUDIES 05/20/18 FOR NEUROSYPHLIS . STARTED TIVICAY 50 MG BY MOUTH ONCE A DAY DAILY. 05/24/18 STARTED TRUVADA 200/300MG ONE TABLET ONCE A DAY DAILY 05/24/18 Continue IV aqueous crystalline penicillin 3 million units every 6 hourly for TOTAL OF 10DAYS. 05/20/18.-05/30/18 CARDIAC W/U IN PROGRESS. PT FOR WAYNE PER PMD TO TO COMPLETE iv ANTIBIOTICS/AND PT. Objective - Vital Signs/Intake and Output Vital Signs (last 24 hours): Temp Pulse Resp BP Pulse Ox 98.3 F 72 20 152/89 H 94 L 05/26/18 08:17 05/26/18 08:17 05/26/18 08:17 05/26/18 08:17 05/26/18 08:17 Intake and Output: 05/26/18 05/26/18 06:59 18:59 Intake Total 50 Balance 50 - Medications Medications: Current Medications Acetaminophen (Tylenol 325mg Tab) 650 mg PO Q4H PRN PRN Reason: pain fever Last Admin: 05/21/18 16:24 Dose: 650 mg Aspirin (Aspirin Chewable) 81 mg PO DAILY [facility] Last Admin: 05/26/18 09:27 Dose: 81 mg Dolutegravir Sodium (Tivicay) 50 mg PO DAILY [facility] PRN Reason: Protocol Last Admin: 05/26/18 09:26 Dose: 50 mg Emtricitabine/Tenofovir (Truvada 200 Mg-300 Mg) 1 tab PO DAILY [facility] PRN Reason: Protocol Last Admin: 05/26/18 09:28 Dose: 1 tab Famotidine (Pepcid) 40 mg PO DAILY [facility] Last Admin: 05/26/18 09:27 Dose: 40 mg Folic Acid (Folic Acid) 1 mg PO DAILY [facility] Last Admin: 05/26/18 09:27 Dose: 1 mg Haloperidol (Haldol) 1 mg PO Q6 PRN PRN Reason: Agitation Hydroxyzine HCl (Atarax) 25 mg PO Q6 PRN PRN Reason: Anxiety Last Admin: 05/21/18 21:23 Dose: 25 mg Penicillin G Potassium 3 mu/ (Sodium Chloride) 50 mls @ 100 mls/hr IVPB Q6H [facility] Last Admin: 05/26/18 06:22 Dose: 100 mls/hr Sodium Chloride (Sodium Chloride 0.9%) 500 mls @ 50 mls/hr IV .Q10H [facility] Stop: 05/26/18 22:59 Last Admin: 05/26/18 12:30 Dose: 50 mls/hr Metoprolol Succinate (Toprol Xl) 25 mg PO DAILY [facility] Last Admin: 05/26/18 09:32 Dose: Not Given Multivitamins (Hexavitamin) 1 tab PO DAILY [facility] Last Admin: 05/26/18 09:27 Dose: 1 tab Thiamine HCl (Vitamin B1 Tab) 100 mg PO DAILY [facility] Last Admin: 06/27/18 09:27 Dose: 100 mg - Labs Labs: 05/25/18 07:11 05/25/18 07:11 PT 12.2 SECONDS (9.7-12.2) 05/26/18 09:20 INR 1.1 05/26/18 09:20 APTT 33 SECONDS (21-34) 05/26/18 09:20
[2018-05-26 14:38] LABS: HIV-1 GENOTYPE DETECTED
--- NOTE | 2018-05-26 14:52 | CP.PCM.PN ---
Subjective - Date & Time of Evaluation Date of Evaluation: 05/26/18 Time of Evaluation: 14:10 - Subjective Subjective: patient seen today , denies any chest jennifer, sob , abdominal pain, N/V/D for cardiac cath today by Dr. woodall Objective - Vital Signs/Intake and Output Vital Signs (last 24 hours): Temp Pulse Resp BP Pulse Ox 98.3 F 72 20 152/89 H 94 L 05/26/18 08:17 05/26/18 08:17 05/26/18 08:17 05/26/18 08:17 05/26/18 08:17 Intake and Output: 05/26/18 05/26/18 06:59 18:59 Intake Total 50 Balance 50 - Medications Medications: Current Medications Acetaminophen (Tylenol 325mg Tab) 650 mg PO Q4H PRN PRN Reason: pain fever Last Admin: 05/21/18 16:24 Dose: 650 mg Aspirin (Aspirin Chewable) 81 mg PO DAILY [facility] Last Admin: 05/26/18 09:27 Dose: 81 mg Dolutegravir Sodium (Tivicay) 50 mg PO DAILY [facility] PRN Reason: Protocol Last Admin: 05/26/18 09:26 Dose: 50 mg Emtricitabine/Tenofovir (Truvada 200 Mg-300 Mg) 1 tab PO DAILY [facility] PRN Reason: Protocol Last Admin: 05/26/18 09:28 Dose: 1 tab Famotidine (Pepcid) 40 mg PO DAILY [facility] Last Admin: 05/26/18 09:27 Dose: 40 mg Folic Acid (Folic Acid) 1 mg PO DAILY [facility] Last Admin: 05/26/18 09:27 Dose: 1 mg Haloperidol (Haldol) 1 mg PO Q6 PRN PRN Reason: Agitation Hydroxyzine HCl (Atarax) 25 mg PO Q6 PRN PRN Reason: Anxiety Last Admin: 05/21/18 21:23 Dose: 25 mg Penicillin G Potassium 3 mu/ (Sodium Chloride) 50 mls @ 100 mls/hr IVPB Q6H [facility] Last Admin: 05/26/18 06:22 Dose: 100 mls/hr Sodium Chloride (Sodium Chloride 0.9%) 500 mls @ 50 mls/hr IV .Q10H [facility] Stop: 05/26/18 22:59 Last Admin: 05/26/18 12:30 Dose: 50 mls/hr Metoprolol Succinate (Toprol Xl) 25 mg PO DAILY [facility] Last Admin: 05/26/18 09:32 Dose: Not Given Multivitamins (Hexavitamin) 1 tab PO DAILY [facility] Last Admin: 05/26/18 09:27 Dose: 1 tab Thiamine HCl (Vitamin B1 Tab) 100 mg PO DAILY [facility] Last Admin: 05/26/18 09:27 Dose: 100 mg - Labs Labs: 05/25/18 07:11 05/25/18 07:11 PT 12.2 SECONDS (9.7-12.2) 05/26/18 09:20 INR 1.1 05/26/18 09:20 APTT 33 SECONDS (21-34) 05/26/18 09:20 Assessment and Plan - Assessment and Plan (Free Text) Assessment: A/P 78 yr old male with pmhx of HTN, + HIV non complaints with medications admitted with near syncope patient has Occasional episodes of tachycardia NSVT and Dr. Woodall on consult , recommends cardiac cath s/p spinal tap Dr. Samaniego on consult recommends to continue IV aqueous crystalline penicillin 3 million units every 6 hourly for TOTAL OF 10DAYS. 05/20/18.-05/30/18 pt s/p cardiac cath today -Multi-vessel disease. d/w Dr. woodall , recommend medical management for now with DAPT, beta blockers and lipid lowering agents. May transfer to sub acute. Follow-up with Dr. Woodall office in two weeks. D/w with Dr. Love , cleared fro discharge to [facility] today ad Dr. Love will follow the patient at [facility] further management as per Dr. Love at the facility
[2018-05-26 16:24] VITALS: BP 173/91; PULSE 62; RESP 18; TEMP 97.9
--- NOTE | 2018-05-27 08:03 | CARDCATH ---
PROCEDURE DATE: 05/26/2018 RIGHT AND LEFT HEART CATHETERIZATION BRIEF CLINICAL HISTORY: The patient who is 78 years old male with a history of HIV, positive for syphilis, positive for RPR, concerned to be neurosyphilis who passed out and was brought into the hospital with syncope. The patient had nonsustained VT and episodes of VT. The patient was considered to be having high risk of coronary artery disease and with electrocardiogram showing [id number] aortic stenosis, the patient was advised for cardiac catheterization and he agreed. PROCEDURE TECHNIQUE: After obtaining the consent, the patient was prepared for right and left heart catheterization. Right groin was used for access. A 7-[place] sheath was introduced into the right femoral vein, and access was completed on the right side. After obtaining the venous access, a 6-[place] sheath was then introduced into the right femoral artery, and arterial access was completed. Sonogram was used to assess the right-sided pressure. The patient has normal right-sided pressure without any significant elevation in the pulmonary or right artery pressures. After completing the right-sided catheterization, left-sided catheterization was performed. A 6-[place] JL4 catheter was used to visualize the left coronary artery system. A 6-[place] JR4 catheter was used to visualize the right coronary artery system. A 6-[place] JR catheter was used to cross the aortic valve and assess the left ventricular end-diastolic pressure and get into across the aortic valve with LV function. The patient has normal left main which is trifercates into LAD, ramus and circumflex. LAD has a 90% lesion in the mid portion of the vessel. The ramus has a 90% lesion in the mid portion of the vessel. Circumflex has a nonobstructive disease. RCA is ectatic vessel with PDA 90% lesion. Normal LV systolic function. The gradient across the aortic valve is suggestive of [id number] aortic stenosis. ASSESSMENT: The patient with multivessel disease, normal left ventricular systolic pressure, [id number] aortic stenosis. PLAN: Given the patient's other medical and social history, we will recommend to treat the patient medically with dual antiplatelet therapy, beta-blockers, ADRIEL inhibitors, lipid-lowering agents and treat the underlying infectious causes which is being diagnosed. We will recommend further intervention when the patient is more stable. We will recommend to follow up as an outpatient. Mayra Alvarez MD [facility]
[2018-05-27 14:05] LABS: VENOUS BLOOD GAS PCO2 50 mmHg (40-60); VENOUS BLOOD GAS PO2 36 mm/Hg (30-55); VENOUS BLOOD PH 7.36 (7.32-7.43)
[2018-05-27 14:06] LABS: VENOUS BLOOD GAS BASE EXCESS 1.9 mmol/L (0.0-2.0)
--- NOTE | 2018-05-29 22:05 | DS ---
This is 78 years old male. The patient was admitted on 05/15/2018 in [facility] and discharged to [facility] on 05/26/2018. The patient was seen and examined at the bedside on . CHIEF COMPLAINT: Syncope, fall, altered mental status. HISTORY OF PRESENT ILLNESS: Mr. Roberto Gallego is a 78 years old male, came to the emergency room for near-syncope prior to arrival. This happened when he was standing, had fall, left facial injury. As per the patient, no loss of consciousness, no chest pain, no palpitation, no headache, no dizziness. According to the patient, he has a history of HIV and got rid of it. Noncompliant with HAART for the past year. Re-admitted the patient. Did CAT scan of the head, CAT scan of the chest, chest x-ray, brain MRI. Cardiac catheterization done by Dr. Alvarez. ID was on the case. The patient has neurosyphilis. Lumbar puncture was done by Dr. Eduardo Schuler. HIV positive, getting medications from Dr. Binh Vasquez. The patient was in one-to-one throughout hospitalization because of altered mental status. Now end of the treatment, his mental status improved. I just met the patient's brother in a [facility]. He used to work there. He gave me more history about the patient. The patient used to do drugs, but now as per the patient, he is not using now. PAST MEDICAL HISTORY: History of HIV positive, noncompliant with HAART, hypertension. FAMILY HISTORY: Father and mother, noncontributory. HABITS: No smoking, no drugs, no ethanol as per the patient. REVIEW OF SYSTEMS: The patient was seen and examined at the bedside on 05/26/2018, looking comfortable. No nausea or vomiting. No headache or dizziness. No chest pain or palpitation. Feeling better. Conscious level is better. His conversation makes more sense. Had no fever, no chills. No abdominal pain. Planned for cardiac catheterization by Dr. Alvarez. PHYSICAL EXAMINATION: VITAL SIGNS: Temperature 98.3, pulse 72, respiratory rate 20, blood pressure 152/89, pulse oximetry 94. HEENT: Head, normocephalic, atraumatic. Eyes, PERRLA. Extraocular muscles intact. Conjunctivae clear. Nose patent. NECK: Supple. No carotid bruits. No thyromegaly. CHEST: Bilaterally symmetrical. HEART: S1 and S2 positive. LUNGS: Clear to auscultation. ABDOMEN: Soft. Bowel sounds present. No organomegaly. EXTREMITIES: No edema. No cyanosis. NEUROLOGICAL: The patient is awake and alert. Moving all four extremities. No focal deficit. MEDICATIONS: Aspirin, Tivicay, Truvada, Pepcid, folic acid, Haldol, Atarax, penicillin, metoprolol, multivitamin, thiamine. LABORATORY DATA: White blood cell is 5.6, hemoglobin 14.2, hematocrit 42.7, platelets 147. Sodium 140, potassium 4.1, BUN 70, creatinine 1.1, glucose 99. ASSESSMENT AND PLAN: Mr. Roberto Gallego is a 78 years old male with past medical history of hypertension, human immunodeficiency virus positive, noncompliant with medications. As per brother, the patient used to use drugs, came with syncope. The patient was having tachycardia, nonsustained ventricular tachycardia. Dr. Alvarez was consulted. He recommended cardiac catheterization. Cardiac catheterization was done. Medical treatment. Dr. Eduardo Schuler did spinal tap. Dr. Vasquez was the Infectious Disease physician. She recommended IV aqueous crystalline penicillin 3 million units every 6 hours for total of 10 days. It will go up to 05/30/2018. cardiac catheterization, multivessel disease. Discussion has been with Dr. Alvarez by himself recommending medical treatment for now the dual antiplatelet therapy, beta nitish, lipid-lowering agents. May transfer to subacute. Cleared by Infectious Disease, Neurology for discharge. Discharged the patient to [facility]. We will continue treatment there and follow up the consult as outpatient. Alia Kumar MD MTDElsy
== END 2018-05-26 16:16 | DRG 287 ==
LOC: C.ER 13:42 → C.9E 16:44 → C.6T 17:28 → OBSVTOIN 05-17 23:05 → C.6T 05-21 14:05
PROVIDERS: ADMIT Internal Medicine; ATTEND Internal Medicine
PROC: 009U3ZX Drainage of Spinal Canal, Percutaneous Approach, Diagnostic (ICD-10-PCS; 2018-05-20)
PROC: B216YZZ Fluoroscopy of Right and Left Heart using Other Contrast (ICD-10-PCS; 2018-05-26)
PROC: 4A023N8 Measurement of Cardiac Sampling and Pressure, Bilateral, Percutaneous Approach (ICD-10-PCS; principal; 2018-05-26 10:00)
PROC: B211YZZ Fluoroscopy of Multiple Coronary Arteries using Other Contrast (ICD-10-PCS; 2018-05-26 10:00)
DX: I35.0 Nonrheumatic aortic (valve) stenosis (principal); I47.2 Ventricular tachycardia; I44.2 Atrioventricular block, complete; F10.230 Alcohol dependence with withdrawal, uncomplicated; A52.3 Neurosyphilis, unspecified; W18.30XA Fall on same level, unspecified, initial encounter; I10 Essential (primary) hypertension; I25.2 Old myocardial infarction; R55 Syncope and collapse; Z21 Asymptomatic human immunodeficiency virus [HIV] infection status; S01.81XA Laceration without foreign body of other part of head, initial encounter; E78.5 Hyperlipidemia, unspecified; F03.90 Unspecified dementia, unspecified severity, without behavioral disturbance, psychotic disturbance, mood disturbance, and anxiety; I49.9 Cardiac arrhythmia, unspecified; N28.9 Disorder of kidney and ureter, unspecified; Z86.73 Personal history of transient ischemic attack (TIA), and cerebral infarction without residual deficits; Z91.14 Patient's other noncompliance with medication regimen; R41.0 Disorientation, unspecified; R73.9 Hyperglycemia, unspecified; Y90.0 Blood alcohol level of less than 20 mg/100 ml